=== PATIENT | female | born 2000 | race Caucasian/White ===

== ENCOUNTER 2024-11-18 05:43 | Inpatient (IN) ==
[2024-11-18] MEDS: ONDANSETRON INJ 2 MG/ML 2 ML VIAL IV STA ×2 (06:14→06:57)
[2024-11-18] MEDS: KETOROLAC TROMETHAMINE 15 MG/ML VIAL IV STA (06:14)
[2024-11-18] MEDS: SODIUM CHLORIDE 0.9% 1,000 ML IV ONE ×2 (06:16→09:40)
[2024-11-18 06:37] LABS: Hematocrit (blood only) 40.9 % (37.0-47.0); Hemoglobin 14.5 g/dl (12.0-16.0); Immature Granulocytes # (auto) 0.02 K/uL (0.01-0.20); Immature Granulocytes % (auto) 0.2 %; Mean Corpuscular Hemoglobin 31.9 pg (25.0-34.0); Mean Corpuscular Volume 90.1 fL (80.0-100.0); Platelet Count 269 K/uL (130-400); RDW Standard Deviation 38.0 fL (36.4-46.3); Red Blood Count 4.54 M/uL (4.20-5.40); White Blood Count 9.11 K/ul (4.8-10.8)
[2024-11-18 06:56] LABS: Alanine Aminotransferase 15.0 U/L (7-52); Albumin Globulin Ratio 1.1 (0.9-2); Alkaline Phosphatase 39.0 U/L (34-104); Anion Gap 7.0 (3-11); Bilirubin,Total 0.3 mg/dl (0.2-1.0); Blood Urea Nitrogen 12.0 mg/dl (6-23); Calcium 8.6 mg/dl (8.6-10.3); Carbon Dioxide 22.0 mmol/L (21-32); Chloride 111.0 mmol/L (98-107); Creatinine Clr Calc Pharmacy 142.5 ml/min; Globulin 3.6 gm/dl (2.5-4.0); Glucose 99.0 mg/dl (70-99(Fasting)); Lipase 22.0 U/L (11-82); Potassium 3.7 mmol/L (3.5-5.1); Sodium 140.0 mmol/L (136-145); Total Protein 7.6 gm/dl (6.0-8.3)
[2024-11-18] MEDS: MoRPHine SULFATE 4 MG/ML 1 ML CARP\\VIAL IV STA (06:57)
[2024-11-18] MEDS: ACETAMINOPHEN 1,000 MG/100 ML VIAL IV STA (06:57)
[2024-11-18 07:06] LABS: Pregnancy Test, Serum Negative (Negative)
--- NOTE | 2024-11-18 07:06 | Emergency Department Note ---
Impression & Plan Acute right flank pain, Hydronephrosis, Renal colic, Vomiting, UTI (urinary tract infection) ED Provider Note NAME: MARU STERLING AGE: 24 SEX: F : 2000 ARRIVES VIA: Walk-In INFORMANT: [Patient][father] ED PROVIDER(S): [Daljit Gilman MD] CHIEF COMPLAINT: Kidney stone HISTORY OF PRESENT ILLNESS: The patient is a 24-year-old female who presents to the ER with about 2.5 hours of right flank pain that radiates to the groin. She did urinate initially and the urine seemed dark, now it seems like she cannot urinate. She has had nausea and vomiting. The patient felt fine yesterday. There has been no fever, no cough or congestion. Patient has no history of previous kidney stone. PMHx/PSHx/Social Hx: See Below PHYSICAL EXAM: GENERAL: Patient is in mild distress from pain. HEENT: No acute trauma, normocephalic atraumatic, mucous membranes moist, no nasal congestion. NECK: No stridor, no adenopathy, no meningismus, trachea is midline. LUNGS: Clear to auscultation bilaterally, no wheeze, no rhonchi, breath sounds equal. HEART: Without murmurs gallops or rubs, regular rate and rhythm. ABDOMEN: Soft, nontender, no peritonitis. EXTREMITIES: No cyanosis, full range of motion of all the joints without pain or difficulty. NEUROLOGIC: Oriented x 3, no acute motor or sensory deficits, no focal weakness. SKIN: No jaundice, no diaphoresis. Back: Right flank discomfort to percussion. DIFFERENTIAL DIAGNOSIS: Renal colic, pyelonephritis, UTI, ovarian cyst, ovarian torsion, bowel obstruction, among others. EMERGENCY DEPARTMENT PROCEDURES: MEDICAL DECISION MAKING: There is no leukocytosis or concerning anemia. There is a normal platelet count. No bandemia. No renal failure or significant electrolyte abnormality. No concerning liver enzyme elevation. testing was negative. No evidence for pancreatitis. Urinalysis does show findings consistent with infection. Abdominal and pelvis CT shows right-sided hydronephrosis with a distal right ureteral stone. On exam, patient was quite uncomfortable. She was not febrile. Patient was given IV saline and IV Toradol. She was given IV Zofran. She required additional IV Zofran. She was given IV morphine and eventually IV Dilaudid for pain control. She received IV Tylenol, IV ceftriaxone, IV Benadryl. She was given her typical dose of oral fludrocortisone. She was given oral Flomax. The patient has persistent right flank discomfort. She has required multiple different meds for symptom control. She is going to require a hospital stay. Additionally, she was found to have a UTI. The findings of UTI with a urinary obstruction were bit more concerning. Urology was consulted. The patient is being hospitalized, she will likely have a urologic procedure later today. I did speak with the patient and her father, results/findings were discussed. I spoke with case management, the on-call hospitalist was consulted. Prior/Outside records/notes reviewed: None Imaging/x-ray results per my interpretation: Chronic Medical/Social conditions affecting care: None Care/Management discussed with: Urology-Dr. Godinez. Case management and the on-call hospitalist. Level of care consideration(s): After review of the information above and other included data: --I believe the patient requires escalation of care to admission DISPOSITION: Admission Past Med/Surg History Problem List (Updated 11/18/24 @ 14:57 by Daljit Gilman MD) UTI (urinary tract infection) (Acute) Vomiting (Acute) Renal colic (Acute) Hydronephrosis (Acute) Acute right flank pain (Acute) Right distal ureteral calculus Hydronephrosis Hand pain, left (Acute) Laceration of left hand (Acute) Dyspepsia Nausea & vomiting Encounter for pre-operative examination Syncope and collapse Tachycardia Vitamin D deficiency Shoulder pain, right GERD (gastroesophageal reflux disease) H/O concussion TMJ (temporomandibular joint disorder) Ankylosing spondylitis Rheumatoid factor positive Polyarthralgia Migraine without aura Obesity History of wisdom tooth extraction Migraines (Chronic) Medical History History of tachycardia 03/2024, dx w/ POTS shortly after Hx of syncope 03/2024, w/collapse, dx POTS shortly after per pt. Shoulder pain, right ongoing per pt. Rheumatoid factor positive hx Hx of polyarthritis Hx of migraines Hx of concussion 2022, no residual effects Hx of gastroesophageal reflux (GERD) Hx of ankylosing spondylitis Generalized anxiety disorder Major depressive disorder History of OCD (obsessive compulsive disorder) Hx of temporomandibular joint disorder locks occasionally due to overextertion, "but not for long" POTS (postural orthostatic tachycardia syndrome) dx 03/2024; f/u [facility]ology Surgical History Hx of oral surgery x3 minor surgeries H/O tooth extraction wisdom teeth extracted Family History Grandfather (Maternal) Myocardial infarction Mother Hypertension Stroke Cavernous hemangioma Father Hypertension Bipolar disorder Lung disease Sleep apnea Prediabetes Sister Transgender Depression ADHD Autism Eating disorder Denies family history of Ovarian cancer Prostate cancer Breast cancer Colorectal cancer Social History Smoking Status: Never smoker Tobacco Type: Cigarettes and E-cigarettes / Vaping Second Hand Exposure: No; Do You Dip or Chew Tobacco: No; Hx Alcohol Use: No Hx Substance Use: Yes Non-Prescribed Medications: Marijuana Last Used Substance: Days (ago) Last Used Substance Other:: 10/31/24 Substance Use Type Other:: edibles Preferred Language: Chinese Communication Ability: Effective Visual Impairment: No Limitations Hearing Ability: Normal Health Plan Manager Required: No Beliefs That Will Affect Care: None marital status: Single Current Living Situation: Family current occupational status: unemployed 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 Feels Safe at Home: Yes Childhood Exposure to Second-Hand Smoke: No Diet: regular caffeine: Yes during the past year weight has: remained stable Dental Care, Regularly: Yes Physical Activity Frequency: 3-4 Times per Week Seatbelt Use: always Sunscreen Use: Yes Do you think of yourself as: Queer Sexual Activity: has been sexually active within the last 12 months Gender Identity: Genderqueer Assistive Devices: Glasses and Walker Allergies Allergies Allergy/AdvReac Type Severity Reaction Status Date / Time prochlorperazine AdvReac Unknown panic Verified 11/08/24 11:36 [From Compazine] attack Home Meds Home Medications Medication Instructions Recorded Confirmed compound face Cream 1 applic topical DIRECTED 06/18/22 11/18/24 emtricitabine 200 mg-tenofovir 1 tab PO DAILY 06/18/24 11/18/24 disoproxil fumarate 300 mg tablet mupirocin 2 % topical ointment 1 applic topical BID PRN Mouth 11/02/24 11/18/24 Irritation ondansetron HCl 4 mg tablet 4 mg PO Q6H PRN Nausea And Vomiting 11/02/24 11/18/24 ubrogepant 100 mg tablet (Ubrelvy) 100 mg PO .COMPLEX PRN Migraine 11/18/24 11/18/24 Headache Previous Rx's Medication Instructions Recorded etonogestrel 0.12 mg-ethinyl 1 vag ring vaginal ONCE #3 ea 06/16/22 estradiol 0.015 mg/24 hr vaginal ring (NuvaRing) Shower Chair #1 ea 10/20/22 infliximab 100 mg intravenous 1,034 mg IV ONCE 06/01/23 solution (Remicade) hydroxyzine HCl 25 mg tablet 25 mg PO Q6H PRN Anxiety #360 tabs 12/08/23 sertraline 100 mg tablet 150 mg (1.5 x 100 mg) PO HS 90 03/19/24 days #135 tabs trazodone 100 mg tablet 100 mg PO QPM #90 tabs 08/02/24 famotidine 40 mg tablet 40 mg PO BID 90 days #180 tabs 08/07/24 fremanezumab-vfrm 225 mg/1.5 mL 225 mg (1.5 mL) subcut .COMPLEX 90 08/08/24 subcutaneous auto-injector (Ajovy) days #4.5 mL naproxen 500 mg tablet 500 mg PO DAILY PRN pain 90 days 08/08/24 #90 tabs fludrocortisone 0.1 mg tablet 0.2 mg (2 x 0.1 mg) PO DAILY #60 08/31/24 tabs cholecalciferol (vitamin D3) 1,250 50,000 unit PO .weekly #16 caps 09/10/24 mcg (50,000 unit) capsule Results & Data (ED) Vital Signs Vital Signs - 24 hr 11/18/24 05:43 11/18/24 05:44 11/18/24 06:01 Temperature 36.8 C 36.5 C Temperature Source Oral Temporal Artery Scan Pulse Rate 112 H 91 H Pulse Rate [Right Finger] 89 Pulse Rate from SpO2 Sensor Respiratory Rate 20 18 Respiratory Effort / Characteristics Non-Labored Spontaneous Respiratory Depth Normal Respiratory Pattern Regular Blood Pressure 165/95 H Blood Pressure [Left Arm] 169/130 H Blood Pressure Mean 118 Blood Pressure Mean [Left Arm] 143 Blood Pressure Position Sitting Pulse Oximetry 97 97 Oxygen Delivery Method Room Air Room Air Sepsis Recent Fever Within 48 Hours No Sepsis New/Unexplained Change in Mental Status No Sepsis Action Taken by Nursing No Action Required 11/18/24 06:22 11/18/24 06:22 11/18/24 06:45 Temperature Temperature Source Pulse Rate 88 Pulse Rate [Right Finger] Pulse Rate from SpO2 Sensor 88 Respiratory Rate Respiratory Effort / Characteristics Respiratory Depth Respiratory Pattern Blood Pressure 169/130 H 169/130 H Blood Pressure [Left Arm] Blood Pressure Mean 152 152 Blood Pressure Mean [Left Arm] Blood Pressure Position Pulse Oximetry 99 Oxygen Delivery Method Sepsis Recent Fever Within 48 Hours Sepsis New/Unexplained Change in Mental Status Sepsis Action Taken by Nursing 11/18/24 06:51 11/18/24 07:57 11/18/24 07:57 Temperature Temperature Source Pulse Rate 87 74 Pulse Rate [Right Finger] 74 Pulse Rate from SpO2 Sensor 86 74 Respiratory Rate 22 20 14 Respiratory Effort / Characteristics Respiratory Depth Respiratory Pattern Blood Pressure Blood Pressure [Left Arm] 130/96 Blood Pressure Mean Blood Pressure Mean [Left Arm] 107 Blood Pressure Position Pulse Oximetry 98 96 96 Oxygen Delivery Method Room Air Sepsis Recent Fever Within 48 Hours Sepsis New/Unexplained Change in Mental Status Sepsis Action Taken by Nursing 11/18/24 07:59 11/18/24 08:00 11/18/24 08:12 Temperature Temperature Source Pulse Rate 71 80 Pulse Rate [Right Finger] Pulse Rate from SpO2 Sensor 72 80 Respiratory Rate 13 13 Respiratory Effort / Characteristics Respiratory Depth Respiratory Pattern Blood Pressure 158/100 H Blood Pressure [Left Arm] Blood Pressure Mean 122 Blood Pressure Mean [Left Arm] Blood Pressure Position Pulse Oximetry 97 97 Oxygen Delivery Method Sepsis Recent Fever Within 48 Hours Sepsis New/Unexplained Change in Mental Status Sepsis Action Taken by Nursing 11/18/24 08:21 11/18/24 08:24 11/18/24 08:33 Temperature Temperature Source Pulse Rate 79 76 Pulse Rate [Right Finger] Pulse Rate from SpO2 Sensor 80 76 Respiratory Rate 15 Respiratory Effort / Characteristics Respiratory Depth Respiratory Pattern Blood Pressure 157/104 H Blood Pressure [Left Arm] Blood Pressure Mean 122 Blood Pressure Mean [Left Arm] Blood Pressure Position Pulse Oximetry 98 97 Oxygen Delivery Method Sepsis Recent Fever Within 48 Hours Sepsis New/Unexplained Change in Mental Status Sepsis Action Taken by Nursing 11/18/24 08:39 11/18/24 08:57 11/18/24 09:00 Temperature Temperature Source Pulse Rate 87 74 76 Pulse Rate [Right Finger] Pulse Rate from SpO2 Sensor 86 76 78 Respiratory Rate 15 20 21 Respiratory Effort / Characteristics Respiratory Depth Respiratory Pattern Blood Pressure Blood Pressure [Left Arm] Blood Pressure Mean Blood Pressure Mean [Left Arm] Blood Pressure Position Pulse Oximetry 97 97 96 Oxygen Delivery Method Sepsis Recent Fever Within 48 Hours Sepsis New/Unexplained Change in Mental Status Sepsis Action Taken by Nursing 11/18/24 09:01 11/18/24 09:01 11/18/24 09:01 Temperature Temperature Source Pulse Rate Pulse Rate [Right Finger] Pulse Rate from SpO2 Sensor Respiratory Rate Respiratory Effort / Characteristics Respiratory Depth Respiratory Pattern Blood Pressure 156/106 H 156/106 H 156/106 H Blood Pressure [Left Arm] Blood Pressure Mean 116 116 116 Blood Pressure Mean [Left Arm] Blood Pressure Position Pulse Oximetry Oxygen Delivery Method Sepsis Recent Fever Within 48 Hours Sepsis New/Unexplained Change in Mental Status Sepsis Action Taken by Nursing 11/18/24 09:01 11/18/24 09:09 11/18/24 09:12 Temperature Temperature Source Pulse Rate 89 81 Pulse Rate [Right Finger] Pulse Rate from SpO2 Sensor 90 82 Respiratory Rate 23 19 Respiratory Effort / Characteristics Respiratory Depth Respiratory Pattern Blood Pressure 156/106 H Blood Pressure [Left Arm] Blood Pressure Mean 116 Blood Pressure Mean [Left Arm] Blood Pressure Position Pulse Oximetry 99 98 Oxygen Delivery Method Sepsis Recent Fever Within 48 Hours Sepsis New/Unexplained Change in Mental Status Sepsis Action Taken by Nursing 11/18/24 09:21 Temperature Temperature Source Pulse Rate 82 Pulse Rate [Right Finger] Pulse Rate from SpO2 Sensor 82 Respiratory Rate 20 Respiratory Effort / Characteristics Respiratory Depth Respiratory Pattern Blood Pressure Blood Pressure [Left Arm] Blood Pressure Mean Blood Pressure Mean [Left Arm] Blood Pressure Position Pulse Oximetry 98 Oxygen Delivery Method Sepsis Recent Fever Within 48 Hours Sepsis New/Unexplained Change in Mental Status Sepsis Action Taken by Assisted Medications Current Medication List: was personally reviewed by me Laboratory Data Attestation: I reviewed the patient's lab results. 11/18/24 06:12 11/18/24 06:12 Lab Results 11/18/24 11/18/24 Range/Units 06:12 07:45 WBC 9.11 (4.8-10.8) K/ul RBC 4.54 (4.20-5.40) M/uL Hgb 14.5 (12.0-16.0) g/dl Hct 40.9 (37.0-47.0) % MCV 90.1 (80.0-100.0) fL MCH 31.9 (25.0-34.0) pg MCHC 35.5 (32.0-36.0) g/dL RDW Std Deviation 38.0 (36.4-46.3) fL RDW Coeff of Zaira 11.6 (11.5-14.5) % Plt Count 269 (130-400) K/uL MPV 9.8 (9.4-12.4) fL Immature Gran % (Auto) 0.2 % Neut % (Auto) 49.6 % Lymph % (Auto) 39.3 % [place] % (Auto) 7.7 % Eos % (Auto) 2.5 % Baso % (Auto) 0.7 % Neut # (Auto) 4.52 (1.40-6.50) K/uL Lymph # (Auto) 3.58 H (1.20-3.40) K/uL [place] # (Auto) 0.70 H (0.11-0.59) K/uL Eos # (Auto) 0.23 (0.00-0.50) K/uL Baso # (Auto) 0.06 (0.00-0.20) K/uL Immature Gran # (Auto) 0.02 (0.01-0.20) K/uL Sodium 140 (136-145) mmol/L Potassium 3.7 (3.5-5.1) mmol/L Chloride 111 H (98-107) mmol/L Carbon Dioxide 22 (21-32) mmol/L Anion Gap 7 (3-11) BUN 12 (6-23) mg/dl Creatinine 0.96 (0.6-1.2) mg/dl Est Cr Clr Drug Dosing 142.5 ml/min eGFR 84.73 BUN/Creatinine Ratio 12.5 (10-20) Glucose 99 (70-99(Fasting)) mg/dl Calcium 8.6 (8.6-10.3) mg/dl Total Bilirubin 0.3 (0.2-1.0) mg/dl AST 16 (13-39) U/L ALT 15 (7-52) U/L Alkaline Phosphatase 39 (34-104) U/L Total Protein 7.6 (6.0-8.3) gm/dl Albumin 4.0 (3.4-5.0) gm/dl Globulin 3.6 (2.5-4.0) gm/dl Albumin/Globulin Ratio 1.1 (0.9-2) Lipase 22 (11-82) U/L HCG, Qual Negative (Negative) Urine Color Dark Yellow Urine Appearance Turbid A (Clear) Urine pH 6.0 (4.5-7.5) Ur Specific [place] 1.043 H (1.000-1.030) Urine Protein 1+ H (Negative) Urine Glucose (UA) Negative (Negative) Urine Ketones Trace H (Negative) Urine Blood 2+ H (Negative) Urine Nitrite Negative (Negative) Urine Bilirubin Negative (Negative) Urine Urobilinogen Negative (Negative) Ur Leukocyte Esterase 2+ H (Negative) Urine WBC (Auto) >50 H (0-5) /hpf Urine RBC (Auto) 6-10 H (0-2) /hpf U Hyaline Cast (Auto) 3-5 H (0-2) /lpf U Epithel Cells (Auto) >20 H (0-2) /hpf Urine Bacteria (Auto) 4+ H (None Seen) Calcium Oxalate Crystal Present A (None Prsent) Urine Comment Administered Medications Morphine Sulfate (Morphine Sulfate 2 Mg/Ml Carp) 2 mg IV Q2H PRN PRN Reason: Severe Pain (7,8,9,10) on NRS Stop: 12/02/24 11:43 Last Admin: 11/18/24 12:28 Dose: 2 mg Documented By: CSE Discontinued Medications Diphenhydramine HCl (Diphenhydramine 50 Mg/Ml Vial) 12.5 mg IV NOW STA Stop: 11/18/24 08:23 Last Admin: 11/18/24 08:30 Dose: 12.5 mg Documented By: ML Fludrocortisone Acetate (Fludrocortisone Acetate 0.1 Mg Tab) 0.2 mg PO NOW STA Stop: 11/18/24 08:38 Last Admin: 11/18/24 09:12 Dose: 0.2 mg Documented By: ML Hydromorphone HCl (Hydromorphone Inj 0.5 Mg/0.5 Ml Syr) 0.5 mg IV NOW STA Stop: 11/18/24 08:22 Last Admin: 11/18/24 08:30 Dose: 0.5 mg Documented By: ML Hydromorphone HCl (Hydromorphone Inj 0.5 Mg/0.5 Ml Syr) 0.5 mg IV Q15M PRN PRN Reason: Pain Stop: 12/02/24 08:55 Last Admin: 11/18/24 10:39 Dose: 0.5 mg Documented By: AMS Sodium Chloride (Nss) 1,000 mls @ 999 mls/hr IV .Q1H1M ONE Stop: 11/18/24 06:48 Last Infusion: 11/18/24 07:47 Dose: Infused Documented By: Admin: 11/18/24 06:16 Dose: 999 mls/hr Documented By: BEN Acetaminophen (Ofirmev) 1,000 mg in 100 mls @ 400 mls/hr IV NOW STA Stop: 11/18/24 07:00 Last Infusion: 11/18/24 07:47 Dose: Infused Documented By: Admin: 11/18/24 06:57 Dose: 400 mls/hr Documented By: ML Promethazine HCl (Phenergan) 12.5 mg in 50.5 mls @ 202 mls/hr IV NOW STA Stop: 11/18/24 08:35 Last Infusion: 11/18/24 09:10 Dose: Infused Documented By: Admin: 11/18/24 08:30 Dose: 202 mls/hr Documented By: ML Ceftriaxone Sodium (Rocephin) 2,000 mg in 50 mls @ 100 mls/hr IV NOW STA Stop: 11/18/24 09:17 Last Infusion: 11/18/24 09:42 Dose: Infused Documented By: Admin: 11/18/24 09:12 Dose: 100 mls/hr Documented By: ML Sodium Chloride (Nss) 1,000 mls @ 999 mls/hr IV .Q1H1M ONE Stop: 11/18/24 10:20 Last Infusion: 11/18/24 11:29 Dose: Infused Documented By: Admin: 11/18/24 09:40 Dose: 999 mls/hr Documented By: ML Famotidine (Pepcid 20mg Iv Push) 20 mg in 5 mls @ 2.5 mls/min IV NOW STA Stop: 11/18/24 09:21 Last Admin: 11/18/24 09:36 Dose: 2.5 mls/min Documented By: JEANETTE Ketorolac Tromethamine (Ketorolac Tromethamine 15 Mg/Ml Vial) 15 mg IV NOW STA Stop: 11/18/24 05:49 Last Admin: 11/18/24 06:14 Dose: 15 mg Documented By: BEN Morphine Sulfate (Morphine Sulfate 4 Mg/Ml 1 Ml Carp\\Vial) 4 mg IV NOW STA Stop: 11/18/24 06:47 Last Admin: 11/18/24 06:57 Dose: 4 mg Documented By: JEANETTE Morphine Sulfate (Morphine Sulfate 4 Mg/Ml 1 Ml Carp\\Vial) 4 mg IV Q15M PRN PRN Reason: Pain Stop: 12/02/24 06:45 Last Admin: 11/18/24 07:48 Dose: 4 mg Documented By: JEANETTE Ondansetron HCl (Ondansetron Inj 2 Mg/Ml 2 Ml Vial) 4 mg IV NOW STA Stop: 11/18/24 05:49 Last Admin: 11/18/24 06:14 Dose: 4 mg Documented By: BEN Ondansetron HCl (Ondansetron Inj 2 Mg/Ml 2 Ml Vial) 4 mg IV NOW STA Stop: 11/18/24 06:47 Last Admin: 11/18/24 06:57 Dose: 4 mg Documented By: JEANETTE Tamsulosin HCl (Tamsulosin Hcl 0.4 Mg Cap) 0.4 mg PO NOW ONE Stop: 11/18/24 08:17 Last Admin: 11/18/24 09:12 Dose: 0.4 mg Documented By: JEANETTE Imaging Data Radiologist's Impression: Retrograde Pyelogram 11/18/24 00:00 INTRAOPERATIVE FLUOROSCOPIC IMAGES: CLINICAL HISTORY: Right retrograde exam. COMPARISON: CT of the abdomen and pelvis November 18, 2024 at 6:31 AM. Fluoroscopy time: 14 seconds. Number of fluoroscopic images: 1 Ka,r: 8.98 mGy: FINDINGS: Fluoroscopy was provided during right retrograde exam with right ureteral stent insertion. Proximal aspect of the stent projects over the right collecting system. IMPRESSION: Fluoroscopy provided during right retrograde exam with right ureteral stent insertion. Electronically signed by: Asa Shelby M.D. 11/18/2024 2:27 PM Abdomen/Pelvis CT 11/18/24 05:48 EXAM: CT abd pelvis wo con CLINICAL HISTORY: right flank pain TECHNIQUE: Contiguous axial images were obtained from the level of the diaphragm to the pubic symphysis without intravenous or oral contrast. Coronal and sagittal reconstructions were likewise performed and indicated to increase the sensitivity for detecting clinically relevant pathology. CT scan was performed according to ALARA (as low as reasonable achievable). COMPARISON: None. FINDINGS: The visualized lung bases are clear. Evaluation of the abdominal and pelvic visceral organs is limited without intravenous contrast. The unenhanced liver, spleen, pancreas, and adrenal glands are grossly unremarkable. The gallbladder is present. The kidneys are normal in size and attenuation without obvious calcification. Right kidney shows hydronephrosis and hydroureter up to an obstructing calculus of size 2mm is noted in right vesicoureteric junction. No adenopathy or fluid collections are seen. No evidence of focal or diffuse bowel wall thickening or evidence of bowel obstruction is seen. The appendix is visualized in the right lower quadrant and appears within normal limits. The aorta is normal in caliber. The urinary bladder is normal in contour. Pelvic viscera are grossly unremarkable. No aggressive appearing osseous lesions are identified. IMPRESSION: Right kidney shows hydronephrosis and hydroureter up to an obstructing calculus of size 2mm is noted in right vesicoureteric junction. Electronically signed by Silas Manjarrez 11-18-2024 07:49 AM Discharge Plan Visit Data Chief Complaint: Kidney Stone Stated Complaint: KIDNEY STONE ED Provider: Daljit Gilman Discharge Problem: Acute right flank pain, Hydronephrosis, Renal colic, Vomiting, UTI (urinary tract infection) Patient Disposition: Admitted As Inpatient Condition: Fair Discharge Instructions Interventions: ED Discharge Assessment Last Done: 11/18/24 11:27 Discharge Problem: Hydronephrosis Qualifiers: Hydronephrosis type: with renal calculous obstruction Qualified Code(s): N13.2 - Hydronephrosis with renal and ureteral calculous obstruction Vomiting Qualifiers: Vomiting type: unspecified Nausea presence: with nausea Qualified Code(s): R 11.2 - Nausea with vomiting, unspecified UTI (urinary tract infection) Qualifiers: Urinary tract infection type: acute cystitis Hematuria presence: without hematuria Qualified Code(s): N30.00 - Acute cystitis without hematuria
[2024-11-18] MEDS: MoRPHine SULFATE 4 MG/ML 1 ML CARP\\VIAL IV PRN (07:48)
--- NOTE | 2024-11-18 07:50 | CT Scan Report ---
EXAM: CT abd pelvis wo con CLINICAL HISTORY: right flank pain TECHNIQUE: Contiguous axial images were obtained from the level of the diaphragm to the pubic symphysis without intravenous or oral contrast. Coronal and sagittal reconstructions were likewise performed and indicated to increase the sensitivity for detecting clinically relevant pathology. CT scan was performed according to ALARA (as low as reasonable achievable). COMPARISON: None. FINDINGS: The visualized lung bases are clear. Evaluation of the abdominal and pelvic visceral organs is limited without intravenous contrast. The unenhanced liver, spleen, pancreas, and adrenal glands are grossly unremarkable. The gallbladder is present. The kidneys are normal in size and attenuation without obvious calcification. Right kidney shows hydronephrosis and hydroureter up to an obstructing calculus of size 2mm is noted in right vesicoureteric junction. No adenopathy or fluid collections are seen. No evidence of focal or diffuse bowel wall thickening or evidence of bowel obstruction is seen. The appendix is visualized in the right lower quadrant and appears within normal limits. The aorta is normal in caliber. The urinary bladder is normal in contour. Pelvic viscera are grossly unremarkable. No aggressive appearing osseous lesions are identified. IMPRESSION: Right kidney shows hydronephrosis and hydroureter up to an obstructing calculus of size 2mm is noted in right vesicoureteric junction. Electronically signed by Silas Manjarrez 11-18-2024 07:49 AM
[2024-11-18] MEDS: HYDROmorphone INJ 0.5 MG/0.5 ML SYR IV STA (08:30)
[2024-11-18] MEDS: PROMETHAZINE 12.5 MG/50.5 ML BAG IV STA (08:30)
[2024-11-18] MEDS: diphenhydrAMINE 50 MG/ML VIAL IV STA (08:30)
[2024-11-18 08:45] LABS: Appearance Urine Turbid (Clear); Bacteria Urine Automated 4+ (None Seen); Epithelial Cell Urine Auto >20 /hpf (0-2); Glucose Urine UA Negative (Negative); WBC Urine Automated >50 /hpf (0-5)
[2024-11-18] MEDS: TAMSULOSIN HCL 0.4 MG CAP PO ONE (09:12)
[2024-11-18] MEDS: FLUDROCORTISONE ACETATE 0.1 MG TAB PO STA (09:12)
[2024-11-18] MEDS: cefTRIAXone SODIUM 2,000 MG/50 ML BAG IV STA (09:12)
--- NOTE | 2024-11-18 09:24 | History & Physical Report ---
Date of Service November 18, 2024 Assessment & Plan (1) Hydronephrosis: (2) Hx of gastroesophageal reflux (GERD): (3) POTS (postural orthostatic tachycardia syndrome): (4) Generalized anxiety disorder: (5) Major depressive disorder: Plan Tonia is a 24-year-old female with a past medical history of migraines, ankylosing spondylitis, POTS, GERD who presents to the ER with approximately 4 to 6 hours of right flank pain and inability to urinate. initial evaluation with UA concerning for infection, CT A/P with right-sided hydronephrosis and hydroureter to an obstructing calculus of 2 mm in the right vesicoureteric junction. Admitted for urology consultation and symptom control #Right hydronephrosis Urology consultedplan for stent placement today, 11/18 Continue Flomax daily Minimal ability to urinate since this morning, additional 1 L IV fluid added Continue ceftriaxone for concerns of infection - immunocompromise on Remicade Nausea: IV Zofran as needed Pain control: Tylenol as needed, oxycodone as needed and morphine IV as needed Strain all urine #GERD Continue famotidine 40 mg twice daily #POTS Continue Florinef 0.2 mg daily #Mental health continue sertraline 150 mg nightly, hydroxyzine 25 mg as needed anxiety Trazodone 100 mg HS dispo: Admit to med/surge DVT prophylaxis: Low risk, encourage ambulation Family updated at bedside 11/18 on admission History of Present Illness Chief Complaint: Kidney stone Primary Care Provider: Tracy Jeffries MD Tonia is a 24-year-old female with a past medical history of migraines, ankylosing spondylitis, POTS, GERD who presents to the ER with approximately 4 to 6 hours of right flank pain and inability to urinate. Denies history of kidney stones. Has chronic nausea and vomiting that reports is a little bit worse. States that Zofran usually works best for her. Denies history of kidney stones, reports infrequent UTIs. Denies any frequency urgency burning or in the last few days. Denies fevers or chills at home. We discussed urology consult and likely surgical intervention today and she seemed agreeable to this. She wishes to be a full code ED course: NSS 1 L x 1 Toradol 15 mg IV x 1 Zofran 4 mg IV x 2 Tylenol 1 g IV x 1 Morphine 4 mg IV x 2 Flomax p.o. x 1 Phenergan 12.5 mg IV x 1 Dilaudid 0.5 mg IV x 1 Benadryl 12.5 mg IV x 1 Florinef p.o. x 1 Rocephin Allergies Allergy/AdvReac Type Severity Reaction Status Date / Time prochlorperazine AdvReac Unknown panic Verified 11/08/24 11:36 [From Compazine] attack Home Medications Medication Instructions Recorded Confirmed Type etonogestrel 0.12 mg-ethinyl 1 vag ring vaginal ONCE #3 ea 06/16/22 11/18/24 Rx estradiol 0.015 mg/24 hr vaginal ring (NuvaRing) compound face Cream 1 applic topical DIRECTED 06/18/22 11/18/24 History Shower Chair #1 ea 10/20/22 11/08/24 Rx infliximab 100 mg intravenous 1,034 mg IV ONCE 06/01/23 11/18/24 Rx solution (Remicade) hydroxyzine HCl 25 mg tablet 25 mg PO Q6H PRN Anxiety #360 tabs 12/08/23 11/18/24 Rx sertraline 100 mg tablet 150 mg (1.5 x 100 mg) PO HS 90 03/19/24 11/18/24 Rx days #135 tabs emtricitabine 200 mg-tenofovir 1 tab PO DAILY 06/18/24 11/18/24 History disoproxil fumarate 300 mg tablet trazodone 100 mg tablet 100 mg PO QPM #90 tabs 08/02/24 11/18/24 Rx famotidine 40 mg tablet 40 mg PO BID 90 days #180 tabs 08/07/24 11/18/24 Rx fremanezumab-vfrm 225 mg/1.5 mL 225 mg (1.5 mL) subcut .COMPLEX 90 08/08/24 11/18/24 Rx subcutaneous auto-injector (Ajovy) days #4.5 mL naproxen 500 mg tablet 500 mg PO DAILY PRN pain 90 days 08/08/24 11/18/24 Rx #90 tabs fludrocortisone 0.1 mg tablet 0.2 mg (2 x 0.1 mg) PO DAILY #60 08/31/24 11/18/24 Rx tabs cholecalciferol (vitamin D3) 1,250 50,000 unit PO .weekly #16 caps 09/10/24 11/18/24 Rx mcg (50,000 unit) capsule mupirocin 2 % topical ointment 1 applic topical BID PRN Mouth 11/02/24 11/18/24 History Irritation ondansetron HCl 4 mg tablet 4 mg PO Q6H PRN Nausea And Vomiting 11/02/24 11/18/24 History ubrogepant 100 mg tablet (Ubrelvy) 100 mg PO .COMPLEX PRN Migraine 11/18/24 11/18/24 History Headache Past Med/Surg History Problem List (Updated 11/18/24 @ 10:28 by Fredis Godinez MD) Right distal ureteral calculus Hydronephrosis Hand pain, left (Acute) Laceration of left hand (Acute) Dyspepsia Nausea & vomiting Encounter for pre-operative examination Syncope and collapse Tachycardia Vitamin D deficiency Shoulder pain, right GERD (gastroesophageal reflux disease) H/O concussion TMJ (temporomandibular joint disorder) Ankylosing spondylitis Rheumatoid factor positive Polyarthralgia Migraine without aura Obesity History of wisdom tooth extraction Migraines (Chronic) Medical History History of tachycardia 03/2024, dx w/ POTS shortly after Hx of syncope 03/2024, w/collapse, dx POTS shortly after per pt. Shoulder pain, right ongoing per pt. Rheumatoid factor positive hx Hx of polyarthritis Hx of migraines Hx of concussion 2022, no residual effects Hx of gastroesophageal reflux (GERD) Hx of ankylosing spondylitis Generalized anxiety disorder Major depressive disorder History of OCD (obsessive compulsive disorder) Hx of temporomandibular joint disorder locks occasionally due to overextertion, "but not for long" POTS (postural orthostatic tachycardia syndrome) dx 03/2024; f/u [facility] cardiology Surgical History Hx of oral surgery x3 minor surgeries H/O tooth extraction wisdom teeth extracted Family History Grandfather (Maternal) Myocardial infarction Mother Hypertension Stroke Cavernous hemangioma Father Hypertension Bipolar disorder Lung disease Sleep apnea Prediabetes Sister Transgender Depression ADHD Autism Eating disorder Denies family history of Ovarian cancer Prostate cancer Breast cancer Colorectal cancer Social History Smoking Status: Former smoker Tobacco Type: Cigarettes and E-cigarettes / Vaping Second Hand Exposure: No; Do You Dip or Chew Tobacco: No; Hx Alcohol Use: Yes Alcohol type: beer, wine and hard liquor Alcohol Intake Frequency: Monthly or Less Hx Substance Use: Yes Non-Prescribed Medications: Marijuana Last Used Substance: Days (ago) Last Used Substance Other:: 10/31/24 Substance Use Type Other:: edibles Preferred Language: Haitian Communication Ability: Effective Visual Impairment: No Limitations Hearing Ability: Normal Corduroy Cutter Operator Required: No Beliefs That Will Affect Care: None marital status: Single Current Living Situation: Parent and Family current occupational status: unemployed 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 Feels Safe at Home: Yes Childhood Exposure to Second-Hand Smoke: No Diet: regular caffeine: Yes during the past year weight has: remained stable Dental Care, Regularly: Yes Physical Activity Frequency: 3-4 Times per Week Seatbelt Use: always Sunscreen Use: Yes Do you think of yourself as: Queer Sexual Activity: has been sexually active within the last 12 months Gender Identity: Genderqueer Assistive Devices: Glasses and Walker Review of Systems Review of Systems: All systems reviewed & are unremarkable except as noted in Subjective Physical Exam Physical Exam: General: NAD, VS as above, lying in bed, appears comfortable Resp: normal respiratory effort, lungs clear to auscultation CV: RRR, no murmur, Abd: normal bowel sounds, mild right sided tenderness Back: right CVA tenderness Extremities: Moves all extremities, no edema Neuro: A&O x3, Skin: sutures to left hand intact, no signs of infection Results & Data Results & Data Vital Signs (Past 12 Hours) Vital Signs Temp Pulse Pulse Resp BP BP Pulse Ox 11/18/24 09:01 156/106 H 11/18/24 09:01 156/106 H 11/18/24 09:01 156/106 H 11/18/24 09:01 156/106 H 11/18/24 09:00 76 21 96 11/18/24 08:57 74 20 97 11/18/24 08:39 87 15 97 11/18/24 08:33 157/104 H 11/18/24 08:24 76 97 11/18/24 08:21 79 15 98 11/18/24 08:12 80 13 97 11/18/24 08:00 71 13 97 11/18/24 07:59 158/100 H 11/18/24 07:57 74 14 96 11/18/24 07:57 74 20 130/96 96 11/18/24 06:51 87 22 98 11/18/24 06:45 88 99 11/18/24 06:22 169/130 H 11/18/24 06:22 169/130 H 11/18/24 06:01 91 H 11/18/24 05:44 97.7 F 112 H 18 165/95 H 97 11/18/24 05:43 98.2 F 89 20 169/130 H 97 O2 Del Method 11/18/24 09:01 11/18/24 09:01 11/18/24 09:01 11/18/24 09:01 11/18/24 09:00 11/18/24 08:57 11/18/24 08:39 11/18/24 08:33 11/18/24 08:24 11/18/24 08:21 11/18/24 08:12 11/18/24 08:00 11/18/24 07:59 11/18/24 07:57 11/18/24 07:57 Room Air 11/18/24 06:51 11/18/24 06:45 11/18/24 06:22 11/18/24 06:22 11/18/24 06:01 11/18/24 05:44 Room Air 11/18/24 05:43 Room Air Laboratory Results CBC, chemistry, UA reviewed Diagnostic Findings CT abdomen and pelvis reviewed Supervising Physician Co-Signing Physician Notes Patient was seen and examined independently I discussed the case with Brionna Hess PA-C I reviewed pertinent past medical social family history and also the plan of care and agree with the plan of care. 24-year-old female with a history of migraine calculus spondylitis POTS GERD who presents to the ED with 4 to 6 hours of right flank pain and inability urinate. Patient required increasing doses of parenteral pain medication to improve her symptoms. Urinalysis is abnormal with concern for infection and CT scan showed right-sided hydronephrosis with hydroureter and a UVJ calculus of 2 mm Upon seeing the patient she had been medicated and feels much improved she has no history of kidney stone Examination is for minor discomfort on the right side of her abdomen Assessments: 24-year-old with renal colic with possible additional infection. Plan will be to treat medically to see if we can have her pass her stone if not involve urology Any exceptions will be noted below PG Care Time/CCT Total # of Minutes Spent Total Time Spent with Patient: Total time spent is greater than 50% in coordination of care (as documented) at patient's floor/unit and/or counseling patient: Coding Level of Care Code 67510 INT INP/OBS CARE 3/75MIN Diagnoses Hydronephrosis N13.30 Hx of gastroesophageal reflux (GERD) Z87.19 POTS (postural orthostatic tachycardia syndrome) G90.A Generalized anxiety disorder F41.1 Major depressive disorder F32.9
[2024-11-18] MEDS: FAMOTIDINE 20MG IV PUSH 20 MG/5 ML SYR IV STA (09:36)
--- NOTE | 2024-11-18 10:29 | Urology Consultation ---
Date of Consultation November 18, 2024 Assessment & Plan (1) Hydronephrosis: (2) Right distal ureteral calculus: Plan 24-year-old female presenting with right flank pain. Denies any nausea or vomiting or fevers. Afebrile with stable vitals. Labs within normal limits however urinalysis was grossly positive. CT scan was independently reviewed which showed mild right hydronephrosis and a suspected 2 mm right UVJ stone. Patient being admitted for pain control. Based on obstructing stone and concern for UTI, recommended cystoscopy with right retrograde pyelogram right ureteral stent placement. Explained that we typically do not remove the stone in the situation as it can worsen infection OR will not be available until this afternoon so recommended patient strain urine as a reasonable chance she may pass stone Consent obtained, patient marked Patient already given antibiotics History of Present Illness History of Present Illness 24-year-old female presenting with right flank pain. Denies any nausea or vomiting or fevers. Afebrile with stable vitals. Labs within normal limits however urinalysis was grossly positive. CT scan was independently reviewed which showed mild right hydronephrosis and a suspected 2 mm right UVJ stone. Patient being admitted for pain control. Allergies Allergy/AdvReac Type Severity Reaction Status Date / Time prochlorperazine AdvReac Unknown panic Verified 11/08/24 11:36 [From Compazine] attack Home Medications Medication Instructions Recorded Confirmed Type etonogestrel 0.12 mg-ethinyl 1 vag ring vaginal ONCE #3 ea 06/16/22 11/18/24 Rx estradiol 0.015 mg/24 hr vaginal ring (NuvaRing) compound face Cream 1 applic topical DIRECTED 06/18/22 11/18/24 History Shower Chair #1 ea 10/20/22 11/08/24 Rx infliximab 100 mg intravenous 1,034 mg IV ONCE 06/01/23 11/18/24 Rx solution (Remicade) hydroxyzine HCl 25 mg tablet 25 mg PO Q6H PRN Anxiety #360 tabs 12/08/23 11/18/24 Rx sertraline 100 mg tablet 150 mg (1.5 x 100 mg) PO HS 90 03/19/24 11/18/24 Rx days #135 tabs emtricitabine 200 mg-tenofovir 1 tab PO DAILY 06/18/24 11/18/24 History disoproxil fumarate 300 mg tablet trazodone 100 mg tablet 100 mg PO QPM #90 tabs 08/02/24 11/18/24 Rx famotidine 40 mg tablet 40 mg PO BID 90 days #180 tabs 08/07/24 11/18/24 Rx fremanezumab-vfrm 225 mg/1.5 mL 225 mg (1.5 mL) subcut .COMPLEX 90 08/08/24 11/18/24 Rx subcutaneous auto-injector (Ajovy) days #4.5 mL naproxen 500 mg tablet 500 mg PO DAILY PRN pain 90 days 08/08/24 11/18/24 Rx #90 tabs fludrocortisone 0.1 mg tablet 0.2 mg (2 x 0.1 mg) PO DAILY #60 08/31/24 11/18/24 Rx tabs cholecalciferol (vitamin D3) 1,250 50,000 unit PO .weekly #16 caps 09/10/24 11/18/24 Rx mcg (50,000 unit) capsule mupirocin 2 % topical ointment 1 applic topical BID PRN Mouth 11/02/24 11/18/24 History Irritation ondansetron HCl 4 mg tablet 4 mg PO Q6H PRN Nausea And Vomiting 11/02/24 11/18/24 History ubrogepant 100 mg tablet (Ubrelvy) 100 mg PO .COMPLEX PRN Migraine 11/18/24 11/18/24 History Headache Patient History Medical History History of tachycardia 03/2024, dx w/ POTS shortly after Hx of syncope 03/2024, w/collapse, dx POTS shortly after per pt. Shoulder pain, right ongoing per pt. Rheumatoid factor positive hx Hx of polyarthritis Hx of migraines Hx of concussion 2022, no residual effects Hx of gastroesophageal reflux (GERD) Hx of ankylosing spondylitis Generalized anxiety disorder Major depressive disorder History of OCD (obsessive compulsive disorder) Hx of temporomandibular joint disorder locks occasionally due to overextertion, "but not for long" POTS (postural orthostatic tachycardia syndrome) dx 03/2024; f/u [facility] cardiology Surgical History Hx of oral surgery x3 minor surgeries H/O tooth extraction wisdom teeth extracted Family History Grandfather (Maternal) Myocardial infarction Mother Hypertension Stroke Cavernous hemangioma Father Hypertension Bipolar disorder Lung disease Sleep apnea Prediabetes Sister Transgender Depression ADHD Autism Eating disorder Denies family history of Ovarian cancer Prostate cancer Breast cancer Colorectal cancer Social History Smoking Status: Former smoker Tobacco Type: Cigarettes and E-cigarettes / Vaping Second Hand Exposure: No; Do You Dip or Chew Tobacco: No; Hx Alcohol Use: Yes Alcohol type: beer, wine and hard liquor Alcohol Intake Frequency: Monthly or Less Hx Substance Use: Yes Non-Prescribed Medications: Marijuana Last Used Substance: Days (ago) Last Used Substance Other:: 10/31/24 Substance Use Type Other:: edibles Preferred Language: Uzbek Communication Ability: Effective Visual Impairment: No Limitations Hearing Ability: Normal Corral Boss Required: No Beliefs That Will Affect Care: None marital status: Single Current Living Situation: Parent and Family current occupational status: unemployed 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 Feels Safe at Home: Yes Childhood Exposure to Second-Hand Smoke: No Diet: regular caffeine: Yes during the past year weight has: remained stable Dental Care, Regularly: Yes Physical Activity Frequency: 3-4 Times per Week Seatbelt Use: always Sunscreen Use: Yes Do you think of yourself as: Queer Sexual Activity: has been sexually active within the last 12 months Gender Identity: Genderqueer Assistive Devices: Glasses and Walker Physical Exam Physical Exam: General: Alert and oriented, no acute distress HEENT: Normocephalic, mucous membranes moist Pulmonary: Nonlabored respirations Abdomen: Nondistended Extremities: Moves all 4 spontaneously Neuro: No gross deficits Skin: Warm, dry, no rashes noted Results & Data Vital Signs (Past 12 Hours) Vital Signs Temp Pulse Pulse Resp BP BP Pulse Ox 11/18/24 10:15 145/98 H 11/18/24 10:08 82 11/18/24 10:06 90 14 97 11/18/24 09:48 79 17 96 11/18/24 09:42 75 19 96 11/18/24 09:21 82 20 98 11/18/24 09:12 81 19 98 11/18/24 09:09 89 23 99 11/18/24 09:01 156/106 H 11/18/24 09:01 156/106 H 11/18/24 09:01 156/106 H 11/18/24 09:01 156/106 H 11/18/24 09:00 76 21 96 11/18/24 08:57 74 20 97 11/18/24 08:39 87 15 97 11/18/24 08:33 157/104 H 11/18/24 08:24 76 97 11/18/24 08:21 79 15 98 11/18/24 08:12 80 13 97 11/18/24 08:00 71 13 97 11/18/24 07:59 158/100 H 11/18/24 07:57 74 14 96 11/18/24 07:57 74 20 130/96 96 11/18/24 06:51 87 22 98 11/18/24 06:45 88 99 11/18/24 06:22 169/130 H 11/18/24 06:22 169/130 H 11/18/24 06:01 91 H 11/18/24 05:44 36.5 C 112 H 18 165/95 H 97 11/18/24 05:43 36.8 C 89 20 169/130 H 97 O2 Del Method 11/18/24 10:15 11/18/24 10:08 11/18/24 10:06 11/18/24 09:48 11/18/24 09:42 11/18/24 09:21 11/18/24 09:12 11/18/24 09:09 11/18/24 09:01 11/18/24 09:01 11/18/24 09:01 11/18/24 09:01 11/18/24 09:00 11/18/24 08:57 11/18/24 08:39 11/18/24 08:33 11/18/24 08:24 11/18/24 08:21 11/18/24 08:12 11/18/24 08:00 11/18/24 07:59 11/18/24 07:57 11/18/24 07:57 Room Air 11/18/24 06:51 11/18/24 06:45 11/18/24 06:22 11/18/24 06:22 11/18/24 06:01 11/18/24 05:44 Room Air 11/18/24 05:43 Room Air PG Care Time/CCT Total # of Minutes Spent Total Time Spent with Patient: Total time spent is greater than 50% in coordination of care (as documented) at patient's floor/unit and/or counseling patient: Coding Level of Care Code 54353 IN/OBS CONSULT LVL 3,45M Diagnoses Hydronephrosis N13.30 Right distal ureteral calculus N20.1
[2024-11-18] MEDS: HYDROmorphone INJ 0.5 MG/0.5 ML SYR IV PRN (10:39)
[2024-11-18] MEDS ORDERED: POLYETHYLENE (MIRALAX) 17 GM PACK PO PRN (11:44)
[2024-11-18] MEDS ORDERED: ONDANSETRON INJ 2 MG/ML 2 ML VIAL IV PRN ×2 (11:44→13:18)
[2024-11-18] MEDS ORDERED: ACETAMINOPHEN 500 MG TAB PO PRN (11:44)
[2024-11-18] MEDS: MoRPHine SULFATE 2 MG/ML CARP IV PRN (12:28)
[2024-11-18] MEDS ORDERED: MIDAZOLAM HCL 1 MG/ML 2ML VIAL ONE (13:16)
[2024-11-18] MEDS ORDERED: PROPOFOL IV EMULSION 10 MG/ML 20 ML VIAL IV ONE (13:16)
[2024-11-18] MEDS ORDERED: ONDANSETRON INJ 2 MG/ML 2 ML VIAL ONE (13:16)
[2024-11-18] MEDS ORDERED: LIDOCAINE 2% 2 ML VIAL/AMP(20MG/ML) INFIL ONE (13:17)
[2024-11-18] MEDS ORDERED: HYDROmorphone INJ 1 MG/ML SYRINGE IV PRN (13:18)
[2024-11-18] MEDS ORDERED: ATROPINE SULFATE 0.1 MG/ML 10ML SYR IV PRN (13:18)
--- NOTE | 2024-11-18 13:18 | Anesthesiology Consultation ---
Date of Service November 18, 2024 Assessment & Plan ASA ASA3 Proposed Anesthesia Anesthesia Type: General Risk / Benefits Reviewed With: PT / POA / Parent / Guardian, Accepts Plan and Informed Consent Obtained History Surgery Operation Date: 11/18/24 09:05 Proposed Procedures p Cystoscopy Retrograde(Right) - Fredis Godinez MD s Ureteral Stent Insertion/Removal(Right) - Fredis Godinez MD Height/Weight Height: 5 ft 9 in Weight: 150.4 kg Allergies Allergy/AdvReac Type Severity Reaction Status Date / Time prochlorperazine AdvReac Unknown panic Verified 11/08/24 11:36 [From Compazine] attack Medications Home Medications Medication Instructions Recorded Confirmed Last Taken etonogestrel 0.12 mg-ethinyl 1 vag ring vaginal ONCE #3 ea 06/16/22 11/18/24 11/08/24 estradiol 0.015 mg/24 hr vaginal ring (NuvaRing) compound face Cream 1 applic topical DIRECTED 06/18/22 11/18/24 11/07/24 Shower Chair #1 ea 10/20/22 11/08/24 Unknown infliximab 100 mg intravenous 1,034 mg IV ONCE 06/01/23 11/18/24 10/18/24 solution (Remicade) hydroxyzine HCl 25 mg tablet 25 mg PO Q6H PRN Anxiety #360 tabs 12/08/23 11/18/24 11/07/24 sertraline 100 mg tablet 150 mg (1.5 x 100 mg) PO HS 90 03/19/24 11/18/24 11/07/24 days #135 tabs emtricitabine 200 mg-tenofovir 1 tab PO DAILY 06/18/24 11/18/24 11/08/24 disoproxil fumarate 300 mg tablet trazodone 100 mg tablet 100 mg PO QPM #90 tabs 08/02/24 11/18/24 11/07/24 famotidine 40 mg tablet 40 mg PO BID 90 days #180 tabs 08/07/24 11/18/24 11/08/24 fremanezumab-vfrm 225 mg/1.5 mL 225 mg (1.5 mL) subcut .COMPLEX 90 08/08/24 11/18/24 10/25/24 subcutaneous auto-injector (Ajovy) days #4.5 mL naproxen 500 mg tablet 500 mg PO DAILY PRN pain 90 days 08/08/24 11/18/24 Unknown #90 tabs fludrocortisone 0.1 mg tablet 0.2 mg (2 x 0.1 mg) PO DAILY #60 08/31/24 11/18/24 11/08/24 tabs cholecalciferol (vitamin D3) 1,250 50,000 unit PO .weekly #16 caps 09/10/24 11/18/24 11/07/24 mcg (50,000 unit) capsule mupirocin 2 % topical ointment 1 applic topical BID PRN Mouth 11/02/24 11/18/24 11/07/24 Irritation ondansetron HCl 4 mg tablet 4 mg PO Q6H PRN Nausea And Vomiting 11/02/24 11/18/24 11/07/24 ubrogepant 100 mg tablet (Ubrelvy) 100 mg PO .COMPLEX PRN Migraine 11/18/24 11/18/24 Unknown Headache Active Medications Generic Name Dose Route Start Last Admin Trade Name Supa PRN Reason Stop Dose Admin Morphine Sulfate 2 mg 11/18/24 11:44 11/18/24 12:28 Morphine Sulfate 2 Mg/Ml Carp IV 12/02/24 11:43 2 mg Q2H PRN Administration Severe Pain (7,8,9,10) on NRS NPO Date Last Intake of Fluids: 11/18/24 Time Last Intake of Fluids: 00:00 Date Last Intake of Solids: 11/18/24 Time Last Intake of Solids: 00:00 Past Medical History Medical History History of tachycardia 03/2024, dx w/ POTS shortly after Hx of syncope 03/2024, w/collapse, dx POTS shortly after per pt. Shoulder pain, right ongoing per pt. Rheumatoid factor positive hx Hx of polyarthritis Hx of migraines Hx of concussion 2022, no residual effects Hx of gastroesophageal reflux (GERD) Hx of ankylosing spondylitis Generalized anxiety disorder Major depressive disorder History of OCD (obsessive compulsive disorder) Hx of temporomandibular joint disorder locks occasionally due to overextertion, "but not for long" POTS (postural orthostatic tachycardia syndrome) dx 03/2024; f/u [facility] cardiology Exercise / Class Metabolic Activity II 4-5 Yardwork/Stairs/Walk up hill Past Family History Family History Grandfather (Maternal) Myocardial infarction Mother Hypertension Stroke Cavernous hemangioma Father Hypertension Bipolar disorder Lung disease Sleep apnea Prediabetes Sister Transgender Depression ADHD Autism Eating disorder Denies family history of Ovarian cancer Prostate cancer Breast cancer Colorectal cancer Past Surgical History Surgical History Hx of oral surgery x3 minor surgeries H/O tooth extraction wisdom teeth extracted Past Anesthesia History No Hx of Anesthesia Complications and No Family Hx of Anesthesia Complications History of PONV No Hx of PONV and No Hx of Motion Sickness Social History Smoking Status: Never smoker Do You Dip or Chew Tobacco: No Hx Alcohol Use: No Alcohol type: beer, wine and hard liquor alcohol intake frequency: holidays/special occasions only Hx Substance Use: Yes substance use type: marijuana Substance Use Type Other:: edibles Last Used Substance: Days (ago) Last Used Substance Other:: 10/31/24 Review of Systems denies fever/cough/ colds/ chest pain/ SOB/ DEIDRE denies DEIDRE Physical Exam Vital Signs Last Vital Signs Temp 36.7 C 11/18/24 11:49 Pulse 81 11/18/24 11:49 Resp 16 11/18/24 11:49 BP 162/95 H 11/18/24 11:49 Pulse Ox 98 11/18/24 11:49 O2 Del Method Room Air 11/18/24 11:49 ENMT Mouth: no TMJ abnormality and no dentition abnormality Thyromental Distance: > or= 3.5 Finger Breadths Mallampati Class: II Neck neck extension not limited Respiratory normal respiratory effort; no respiratory distress Auscultation: lungs clear to auscultation bilaterally Cardiovascular Rate/Rhythm: regular rate and regular rhythm Neurologic moves all extremities Psychiatric Orientation: alert and oriented x 3 Testing Laboratory Results 11/18/24 06:12 11/18/24 06:12 Urine Color Dark Yellow 11/18/24 07:45 Urine Appearance Turbid (Clear) A 11/18/24 07:45 Urine pH 6.0 (4.5-7.5) 11/18/24 07:45 Ur Specific [place] 1.043 (1.000-1.030) H 11/18/24 07:45 Urine Protein 1+ (Negative) H 11/18/24 07:45 Urine Glucose (UA) Negative (Negative) 11/18/24 07:45 Urine Ketones Trace (Negative) H 11/18/24 07:45 Urine Nitrite Negative (Negative) 11/18/24 07:45 Ur Leukocyte Esterase 2+ (Negative) H 11/18/24 07:45 Urine WBC (Auto) >50 /hpf (0-5) H 11/18/24 07:45 Urine RBC (Auto) 6-10 /hpf (0-2) H 11/18/24 07:45 U Hyaline Cast (Auto) 3-5 /lpf (0-2) H 11/18/24 07:45 U Epithel Cells (Auto) >20 /hpf (0-2) H 11/18/24 07:45 Urine Bacteria (Auto) 4+ (None Seen) H 11/18/24 07:45
--- NOTE | 2024-11-18 13:48 | Operative Report ---
PG Post Operative Report Pre & Post Diagnosis Operation Date: 11/18/24 09:05 Pre-Op Diagnosis: Kidney stones Post-Op Diagnosis: Kidney stones I identified the patient and participated in the time-out.: Yes Procedure Operation Date: 11/18/24 09:05 Actual Procedures p Cystoscopy Retrograde Pyelogram with radiographic interpretation, right ureteral stent insertion (Right) - Fredis Godinez MD Surgeon Fredis Godinez MD Stone Rigger None Estimated Blood Loss 0 Findings See Below Mild right hydronephrosis, narrow renal pelvis cystoscopy stent coiled in lower pole Specimens None Drains 6 Singaporean by 26 cm right ureteral stent Anesthesia Type General Complications none Indications 24-year-old female with a 2 mm right UVJ stone and urinalysis concerning for infection Description of Procedure After informed consent was obtained, the patient was transported operative suite. General anesthesia was induced. The patient was placed in dorsolithotomy position prepped and draped in a sterile fashion. They received preoperative ceftriaxone for antibiotic prophylaxis. An appropriate surgical timeout was performed. A 22 Singaporean rigid scope was inserted per urethra into the bladder. Venegas cystoscopy revealed no stones or lesions. I turned my attention the right ureteral orifice and intubated this with a 5 Singaporean open-ended catheter. A right retrograde pyelogram was shot which showed mild hydronephrosis. A sensor wire was advanced into the kidney and confirmed fluoroscopically. A 6 Singaporean by 26 cm right ureteral stent was deployed with a a coil in the lower pole as she had a very narrow renal pelvis and I could not get a good coil there and a good distal coil noted in the bladder, confirmed fluoroscopically and under direct visualization, respectively. The bladder was emptied and the scope was removed. This concluded the end of the case. All counts were correct at the end of the case. I was present, scrubbed, and actively participated for the entirety of the procedure. I attest to the content of the Intraoperative Record and any orders documented therein. Any exceptions are noted below.
[2024-11-18] MEDS ORDERED: DEXAMETHASONE SOD INJ 4 MG/ML VIAL ONE (13:52)
[2024-11-18 14:26] VITALS: RESP 16
--- NOTE | 2024-11-18 14:29 | Fluoroscopy Report ---
INTRAOPERATIVE FLUOROSCOPIC IMAGES: CLINICAL HISTORY: Right retrograde exam. COMPARISON: CT of the abdomen and pelvis November 18, 2024 at 6:31 AM. Fluoroscopy time: 14 seconds. Number of fluoroscopic images: 1 Ka,r: 8.98 mGy: FINDINGS: Fluoroscopy was provided during right retrograde exam with right ureteral stent insertion. Proximal aspect of the stent projects over the right collecting system. IMPRESSION: Fluoroscopy provided during right retrograde exam with right ureteral stent insertion. Electronically signed by: Asa Shelby M.D. 11/18/2024 2:27 PM
--- NOTE | 2024-11-18 14:34 | Anesthesiology Progress Note ---
Date of Service November 18, 2024 Anesthesia Post Procedure Vital Signs Vital Signs: Temp Pulse Pulse Pulse Resp BP BP 11/18/24 14:25 94 H 16 140/100 11/18/24 14:15 88 14 141/96 H 11/18/24 14:05 93 H 14 127/96 11/18/24 13:57 36.1 C L 78 16 133/86 11/18/24 11:49 36.7 C 81 16 162/95 H 11/18/24 11:45 36.7 C 81 16 164/95 H 11/18/24 11:27 11/18/24 11:13 147/96 H 11/18/24 11:13 147/96 H 11/18/24 11:12 82 14 11/18/24 11:09 88 16 11/18/24 10:48 86 18 11/18/24 10:24 78 14 11/18/24 10:15 145/98 H 11/18/24 10:08 82 11/18/24 10:06 90 14 11/18/24 09:48 79 17 11/18/24 09:42 75 19 11/18/24 09:21 82 20 11/18/24 09:12 81 19 11/18/24 09:09 89 23 11/18/24 09:01 156/106 H 11/18/24 09:01 156/106 H 11/18/24 09:01 156/106 H 11/18/24 09:01 156/106 H 11/18/24 09:00 76 21 11/18/24 08:57 74 20 11/18/24 08:39 87 15 11/18/24 08:33 157/104 H 11/18/24 08:24 76 11/18/24 08:21 79 15 11/18/24 08:12 80 13 11/18/24 08:00 71 13 11/18/24 07:59 158/100 H 11/18/24 07:57 74 14 11/18/24 07:57 74 20 130/96 11/18/24 06:51 87 22 11/18/24 06:45 88 11/18/24 06:22 169/130 H 11/18/24 06:22 169/130 H 11/18/24 06:01 91 H 11/18/24 05:44 36.5 C 112 H 18 165/95 H 07/06/25 05:43 36.8 C 89 20 169/130 H Pulse Ox O2 Del Method O2 Flow Rate 11/18/24 14:25 99 Room Air 11/18/24 14:15 98 Oxymask 2 11/18/24 14:05 99 Oxymask 4 11/18/24 13:57 96 Oxymask 4 11/18/24 11:49 98 Room Air 11/18/24 11:45 98 Room Air 11/18/24 11:27 Room Air 11/18/24 11:13 11/18/24 11:13 11/18/24 11:12 98 11/18/24 11:09 98 11/18/24 10:48 98 11/18/24 10:24 95 11/18/24 10:15 11/18/24 10:08 11/18/24 10:06 97 11/18/24 09:48 96 11/18/24 09:42 96 11/18/24 09:21 98 11/18/24 09:12 98 11/18/24 09:09 99 11/18/24 09:01 11/18/24 09:01 11/18/24 09:01 11/18/24 09:01 11/18/24 09:00 96 11/18/24 08:57 97 11/18/24 08:39 97 11/18/24 08:33 11/18/24 08:24 97 11/18/24 08:21 98 11/18/24 08:12 97 11/18/24 08:00 97 11/18/24 07:59 11/18/24 07:57 96 11/18/24 07:57 96 Room Air 11/18/24 06:51 98 11/18/24 06:45 99 11/18/24 06:22 11/18/24 06:22 11/18/24 06:01 11/18/24 05:44 97 Room Air 11/18/24 05:43 97 Room Air Pain Intensity Right Flank: Pain Intensity: 8 Transfer of Care Handoff Completed per policy Notes Mental Status: alert / awake / arousable and participated in evaluation Patient Amnestic to Procedure: Yes Nausea / Vomiting: adequately controlled Pain: adequately controlled Airway Patency, RR, SpO2: stable & adequate BP & HR: stable & adequate Hydration State: stable & adequate Anesthetic Complications: no major complications apparent and Pt Satisfied with anesthetic care
[2024-11-18 15:44] VITALS: TEMP 97.5
[2024-11-18 17:50] VITALS: BP 121/81; PULSE 83; O2SAT 98
--- NOTE | 2024-11-18 18:18 | Discharge Summary ---
Discharge Summary Date of Service November 18, 2024 Principal Dx & Hospital Course #1 = Principal Diagnosis (1) Hydronephrosis: (2) Hx of gastroesophageal reflux (GERD): (3) POTS (postural orthostatic tachycardia syndrome): (4) Generalized anxiety disorder: (5) Major depressive disorder: Plan #Right hydronephrosis Tonia is a 24-year-old female with a past medical history of migraines, ankylosing spondylitis, POTS, GERD who presents to the ER with approximately 4 to 6 hours of right flank pain and inability to urinate. initial evaluation with UA concerning for infection, CT A/P with right-sided hydronephrosis and hydroureter to an obstructing calculus of 2 mm in the right vesicoureteric junction. Admitted for urology consultation and symptom control - underwent stent placement with Dr. Godinez 11/18. Has done well post operatively, urinating without issue and pain is controlled. Plan for continued antibioitics with cipro on discharge and continued flomax. PRN oxybutyin and Pyridium. Tylenol and naproxen for pain control. Follow up with urology for stent removal/stone treatment. #GERD Continue famotidine 40 mg twice daily #POTS Continue Florinef 0.2 mg daily #Mental health continue sertraline 150 mg nightly, hydroxyzine 25 mg as needed anxiety Trazodone 100 mg HS Dispo: discharge to home today Family updated at bedside 11/18 Notes For Next Care Provider Medication Changes From Visit course of cipro flomax while stent in place prn oxybutyin and pyridium Admission HPI Per Admitting Provider Tonia is a 24-year-old female with a past medical history of migraines, ankylosing spondylitis, POTS, GERD who presents to the ER with approximately 4 to 6 hours of right flank pain and inability to urinate. Denies history of kidney stones. Has chronic nausea and vomiting that reports is a little bit worse. States that Zofran usually works best for her. Denies history of kidney stones, reports infrequent UTIs. Denies any frequency urgency burning or in the last few days. Denies fevers or chills at home. We discussed urology consult and likely surgical intervention today and she seemed agreeable to this. She wishes to be a full code ED course: NSS 1 L x 1 Toradol 15 mg IV x 1 Zofran 4 mg IV x 2 Tylenol 1 g IV x 1 Morphine 4 mg IV x 2 Flomax p.o. x 1 Phenergan 12.5 mg IV x 1 Dilaudid 0.5 mg IV x 1 Benadryl 12.5 mg IV x 1 Florinef p.o. x 1 Rocephin Discharge Exam General: NAD, vitals as above, sitting on the side of bed Pulm: breathing unlabored CV: well perfused extremities: moves all extremities Discharge Plan Discharge Items Patient Disposition: Home - Self-Care Reason For Visit: KIDNEY STONE Discharge Diagnosis: Kidney stone Condition on Discharge: Fair Activity: Resume your previous activity Bathing: No limitations Non-emergency contact: Primary Care Provider and Urologist Call non-emergency contact if: you have any medication questions, your symptoms worsen, your pain is not controlled and your temperature is above 101 Follow-up/Referrals: Tracy Jeffries MD [Primary Care Provider] - (follow up within one week ) Fredis Godinez MD [Physician] - (follow up as directed ) Diet: Regular Addtl Attending Provider Instructions: Ms. Hyde, You were hospitalized after having flank pain found to be from kidney stones. You were seen by urology and taken to the OR to have a stent placed on 11/[address] Godinez. Your urine was also concerning for infection so you have been started on antibiotics, these will be continued at discharge. You will need to follow up with urology for stent removal and possible stone treatment. Medication Changes/Recommendations: * Continue flomax daily while stent in place - this is to help with easier passage of urine * Pyridium as needed for pain with urination - this can cause your urine/feces to be discolored/orange * Ciprofloxacin -antibiotic . Please take the entire course, even if you feel well. * Pain control - tylenol and ibuprofen as directed, oxybutynin as needed or spasms It is normal to still have discomfort in the flank area while the stent is in place, this pain may be worse with movement. Blood tinged urine can also be common. If you are having persistent dark bloody urine or thick bloody urine for >8 hours please contact your urologist. It is important that you are staying hydrated while the stent is in place. The urology office should be contacting you to schedule and appointment. If you do not hear from them by Tuesday please contact them at [phone] Please contact the urologist if you have any uncontrolled pain, fevers > 100F, or inability to urinate. Thank you for allowing us to participate in your care! Pending Studies at Discharge: Yes (urine culture ) Stand-Alone Forms: [facility], Smoking Cessation Medications and DC Order Prescriptions: New tamsulosin 0.4 mg Capsule 0.4 mg PO QAM 14 Days Qty: 14 0RF oxybutynin chloride 5 mg tablet 5 mg PO TID PRN (Reason: bladder spasms) Qty: 6 0RF phenazopyridine [Pyridium] 100 mg tablet 100 mg PO Q8H PRN (Reason: pain with urination) Qty: 6 0RF Rx Instructions: can discolor urine ciprofloxacin HCl 500 mg tablet 500 mg PO BID Qty: 8 0RF Continued compound face Cream 1 applic topical DIRECTED Rx Instructions: Tretinoin 0.01% Azelaic 2% Niacinamide 4% Apply to clean face Nightly infliximab [Remicade] 100 mg recon soln 1,034 mg IV ONCE Rx Instructions: INFUSE EVERY 8 WEEKS Approved from 10/26/22-10/27/23 Auth Number [id number] Premedication: Loratadine 10mg PO Prior to infusion Tylenol 500mg PO prior to infusion. LABS: CMP, CBC with each infusion. Call office with any questions or concerns [phone] hydroxyzine HCl 25 mg tablet 25 mg PO Q6H PRN (Reason: Anxiety) Qty: 360 1RF sertraline 100 mg tablet 150 mg PO HS 90 Days Qty: 135 3RF trazodone 100 mg tablet 100 mg PO QPM Qty: 90 3RF famotidine 40 mg tablet 40 mg PO BID 90 Days Qty: 180 3RF fludrocortisone 0.1 mg tablet 0.2 mg PO DAILY Qty: 60 5RF Patient Comments: qam cholecalciferol (vitamin D3) 1,250 mcg (50,000 unit) capsule 50,000 unit PO .weekly Qty: 16 0RF (DME) Shower Chair Misc See Rx Instructions .Route Qty: 1 0RF Rx Instructions: As directed R55 etonogestrel-ethinyl estradiol [NuvaRing] 0.12-0.015 mg/24 hr ring 1 vag ring vaginal ONCE Qty: 3 0RF naproxen 500 mg tablet 500 mg PO DAILY PRN (Reason: pain) 90 Days Qty: 90 1RF Ajovy Autoinjector 225 mg/1.5 mL auto-injector 225 mg subcut .COMPLEX 90 Days Qty: 4.5 1RF Rx Instructions: 225 mg subcutaneously [id number]; emtricitabine-tenofovir (TDF) 200-300 mg tablet 1 tab PO DAILY Ubrelvy 100 mg tablet 100 mg PO .COMPLEX PRN (Reason: Migraine Headache) Rx Instructions: 100 mg orally ONCE AT MIGRAINE ONSET. MAY REPEAT IN 2 HRS PRN; ondansetron HCl 4 mg tablet 4 mg PO Q6H PRN (Reason: Nausea And Vomiting) mupirocin 2 % ointment 1 applic topical BID PRN (Reason: Mouth Irritation) Rx Instructions: apply to lesions on area around mouth if not improving Discharge Orders: Discharge Order (Routine); Ordered 11/18/24 Ordered By: Brionna Sheppard Admission Data Admit Date/Time: 11/18/24 09:25 Attending Provider: Cortez Funk Admit Provider: Cortez Funk Primary Care Provider: Tracy Jeffries Other Providers: Cortez Funk; Fredis Godinez Hospital Stay Data Consultations 11/18/24 08:53 ED Decision to Admit Stat 11/18/24 08:57 Consult Urology Stat Procedures Performed Operation Date: 11/18/24 09:05 Actual Procedures p Cystoscopy Retrograde Pyelogram, right ureteral stent insertion (Right) - Fredis Godinez MD Diagnostic Imagining Performed 11/18/24 [place] retrograde includes kub Routine 11/18/24 05:48 CT abd pelvis wo con Stat Pending Results Patient Have Any Pending Studies at Discharge: Yes (urine culture ) Discharge Instructions Given to Patient (Per Discharging Provider) Ms. Hyde, You were hospitalized after having flank pain found to be from kidney stones. You were seen by urology and taken to the OR to have a stent placed on 11/[address] Godinez. Your urine was also concerning for infection so you have been started on antibiotics, these will be continued at discharge. You will need to follow up with urology for stent removal and possible stone treatment. Medication Changes/Recommendations: * Continue flomax daily while stent in place - this is to help with easier passage of urine * Pyridium as needed for pain with urination - this can cause your urine/feces to be discolored/orange * Ciprofloxacin -antibiotic . Please take the entire course, even if you feel well. * Pain control - tylenol and ibuprofen as directed, oxybutynin as needed or spasms It is normal to still have discomfort in the flank area while the stent is in place, this pain may be worse with movement. Blood tinged urine can also be common. If you are having persistent dark bloody urine or thick bloody urine for >8 hours please contact your urologist. It is important that you are staying hydrated while the stent is in place. The urology office should be contacting you to schedule and appointment. If you do not hear from them by Tuesday please contact them at [phone] Please contact the urologist if you have any uncontrolled pain, fevers > 100F, or inability to urinate. Thank you for allowing us to participate in your care! Total Time Total Time Spent Total Time Spent (In Minutes): Time spent day of discharge 65 (including admission) minutes including direct patient care, medication reconciliation, documentation, review of labs and images, and coordination of care. Coding Level of Care Code INP/OBS EV SAME DAY LV 3,85MIN Diagnoses Hydronephrosis N13.30 Hx of gastroesophageal reflux (GERD) Z87.19 POTS (postural orthostatic tachycardia syndrome) G90.A Generalized anxiety disorder F41.1 Major depressive disorder F32.9
[2024-11-18] MEDS ORDERED: FAMOTIDINE 20 MG TAB PO SCH (21:00)
[2024-11-18] MEDS ORDERED: SERTRALINE HCL 50 MG TABLET PO SCH (21:00)
[2024-11-19] MEDS ORDERED: cefTRIAXone SODIUM 2,000 MG/50 ML BAG IV SCH (08:00)
[2024-11-19] MEDS ORDERED: TAMSULOSIN HCL 0.4 MG CAP PO SCH (09:00)
[2024-11-19] MEDS ORDERED: FLUDROCORTISONE ACETATE 0.1 MG TAB PO SCH (09:00)
== END 2024-11-18 18:45 | disposition home or self-care (01) | DRG 661 ==
LOC: ED 05:43 → 3E 09:25 → INTOOBSV 09:25 → OBSVTOIN 09:25 → 3E 11:27

== ENCOUNTER 2024-12-05 21:05 | Observation (INO) ==
--- NOTE | 2024-12-05 22:04 | Emergency Department Note ---
History of Present Illness General Chief complaint: Urinary Symptoms Stated complaint: PAIN W/ URINARY STENT Time Seen by Provider: 12/05/24 21:26 History of Present Illness Maximum Pain Intensity: 9 This 24-year-old female that currently has a right ureteral stent for right urolithiasis presents ER for worsening pain and hematuria with nausea and vomiting. Patient has finished her antibiotics. She scheduled for lithotripsy on the . She has recently seen outpatient urology. Patient denies fever, chills, cough, congestion or any other medical complaints. Home Medications Medication Instructions Recorded Confirmed Type etonogestrel 0.12 mg-ethinyl 1 vag ring vaginal ONCE #3 ea 06/16/22 12/04/24 Rx estradiol 0.015 mg/24 hr vaginal ring (NuvaRing) compound face Cream 1 applic topical DIRECTED 06/18/22 12/04/24 History Shower Chair #1 ea 10/20/22 11/23/24 Rx hydroxyzine HCl 25 mg tablet 25 mg PO Q6H PRN Anxiety #360 tabs 12/08/23 12/04/24 Rx sertraline 100 mg tablet 150 mg (1.5 x 100 mg) PO HS 90 03/19/24 12/04/24 Rx days #135 tabs emtricitabine 200 mg-tenofovir 1 tab PO DAILY 06/18/24 12/04/24 History disoproxil fumarate 300 mg tablet (Truvada) trazodone 100 mg tablet 100 mg PO QPM #90 tabs 08/02/24 12/04/24 Rx famotidine 40 mg tablet 40 mg PO BID 90 days #180 tabs 08/07/24 12/04/24 Rx fremanezumab-vfrm 225 mg/1.5 mL 225 mg (1.5 mL) subcut .COMPLEX 90 08/08/24 12/04/24 Rx subcutaneous auto-injector (Ajovy) days #4.5 mL naproxen 500 mg tablet 500 mg PO DAILY PRN pain 90 days 08/08/24 12/04/24 Rx #90 tabs fludrocortisone 0.1 mg tablet 0.2 mg (2 x 0.1 mg) PO DAILY #60 08/31/24 12/04/24 Rx tabs cholecalciferol (vitamin D3) 1,250 50,000 unit PO .weekly #16 caps 09/10/24 12/04/24 Rx mcg (50,000 unit) capsule mupirocin 2 % topical ointment 1 applic topical BID PRN Mouth 11/02/24 12/04/24 History Irritation phenazopyridine 100 mg tablet 100 mg PO Q8H PRN pain with 11/18/24 12/04/24 Rx (Pyridium) urination 6 doses #6 tabs ubrogepant 100 mg tablet (Ubrelvy) 100 mg PO .COMPLEX PRN Migraine 11/18/24 12/04/24 History Headache ondansetron HCl 4 mg tablet See Rx Instructions .Route 11/19/24 12/04/24 Rx .COMPLEX #60 tabs infliximab 100 mg intravenous 1,034 mg IV .Q6W 11/23/24 12/04/24 History solution (Remicade) oxybutynin chloride 5 mg tablet 5 mg PO TID PRN bladder spasms #60 11/23/24 12/04/24 Rx tabs tamsulosin 0.4 mg capsule 0.4 mg PO QAM 14 days #14 caps 11/27/24 12/04/24 Rx Allergies Allergy/AdvReac Type Severity Reaction Status Date / Time prochlorperazine AdvReac Severe panic Verified 12/04/24 14:11 [From Compazine] attack Past Med/Surg History Problem List (Updated 12/06/24 @ 01:04 by Kirsty Salgado PA-C) Acute UTI (Acute) Renal colic on right side (Acute) Acute right flank pain (Acute) Hand pain, left (Acute) Laceration of left hand (Acute) Dyspepsia Nausea & vomiting Syncope and collapse Tachycardia Vitamin D deficiency Shoulder pain, right GERD (gastroesophageal reflux disease) H/O concussion TMJ (temporomandibular joint disorder) Ankylosing spondylitis Rheumatoid factor positive Polyarthralgia Migraine without aura Obesity History of wisdom tooth extraction Migraines (Chronic) Medical History Renal calculi Hydronephrosis History of tachycardia 03/2024, dx w/ POTS shortly after Hx of syncope 03/2024, w/collapse, dx POTS shortly after per pt. Shoulder pain, right ongoing per pt. Rheumatoid factor positive hx Hx of polyarthritis Hx of migraines Hx of concussion 2022, no residual effects Hx of gastroesophageal reflux (GERD) Hx of ankylosing spondylitis Generalized anxiety disorder Major depressive disorder History of OCD (obsessive compulsive disorder) Hx of temporomandibular joint disorder locks occasionally due to overextertion, "but not for long" POTS (postural orthostatic tachycardia syndrome) dx 03/2024; f/u [facility] cardiology Surgical History S/P ureteral stent placement Hx of esophagogastroduodenoscopy Hx of oral surgery x3 minor surgeries H/O tooth extraction wisdom teeth extracted Family History Grandfather (Maternal) Myocardial infarction Mother Hypertension Stroke Cavernous hemangioma Father Hypertension Bipolar disorder Lung disease Sleep apnea Prediabetes Sister Transgender Depression ADHD Autism Eating disorder Denies family history of Ovarian cancer Prostate cancer Breast cancer Colorectal cancer Social History Smoking Status: Former smoker Tobacco Type: Cigarettes and E-cigarettes / Vaping packs per day: 0; Second Hand Exposure: No; Do You Dip or Chew Tobacco: No; Hx Alcohol Use: Yes Alcohol type: beer, wine and hard liquor Alcohol Intake Frequency: Monthly or Less Hx Substance Use: Yes Non-Prescribed Medications: Marijuana Last Used Substance: Days (ago) Last Used Substance Other:: ~10/28/24 (advised on policy) Substance Use Type Other:: edibles Preferred Language: [place] Islander Communication Ability: Effective Visual Impairment: No Limitations Hearing Ability: Normal Vessel Master Required: No Beliefs That Will Affect Care: None marital status: Single Current Living Situation: Family current occupational status: unemployed 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 Feels Safe at Home: Yes Childhood Exposure to Second-Hand Smoke: No Diet: regular caffeine: Yes during the past year weight has: remained stable Dental Care, Regularly: Yes Physical Activity Frequency: 3-4 Times per Week Seatbelt Use: always Sunscreen Use: Yes Do you think of yourself as: Queer Sexual Activity: has been sexually active within the last 12 months Gender Identity: Genderqueer Assistive Devices: Glasses and Walker Review of Systems A total of 10 systems reviewed and were otherwise negative Physical Exam Vital Signs Vital Signs - 24 hr 12/05/24 21:19 07/23/25 22:05 12/05/24 22:05 Temperature 36.8 C Temperature Source Oral Pulse Rate 106 H 85 Pulse Rate [Apical] 91 H Pulse Rhythm Regular Pulse Rhythm [Apical] Regular Respiratory Rate 20 20 20 Respiratory Effort / Characteristics Non-Labored Spontaneous Non-Labored Spontaneous Respiratory Depth Normal Normal Respiratory Pattern Regular Regular Blood Pressure 152/94 H Blood Pressure [Right Arm] 165/102 H Blood Pressure Mean 113 Blood Pressure Mean [Right Arm] 123 Blood Pressure Position Sitting Pulse Oximetry 97 98 97 Oxygen Delivery Method Room Air Room Air Room Air Sepsis Recent Fever Within 48 Hours No Sepsis New/Unexplained Change in Mental Status N/A Sepsis Action Taken by Nursing No Action Required 12/05/24 23:42 Temperature Temperature Source Pulse Rate 82 Pulse Rate [Apical] Pulse Rhythm Pulse Rhythm [Apical] Respiratory Rate Respiratory Effort / Characteristics Respiratory Depth Respiratory Pattern Blood Pressure Blood Pressure [Right Arm] Blood Pressure Mean Blood Pressure Mean [Right Arm] Blood Pressure Position Pulse Oximetry Oxygen Delivery Method Sepsis Recent Fever Within 48 Hours Sepsis New/Unexplained Change in Mental Status Sepsis Action Taken by Nursing VITALS: Vitals are noted on the nurse's note and reviewed by myself. Vital signs stable. GENERAL: Pleasant female holding her emesis bag, in no acute distress, nondiaphoretic, well-developed well-nourished. SKIN: Capillary reflex less than 2 seconds. HEENT: Normocephalic. PERRLA. EOMI. Nares patent. Mucous membranes moist. Neck is supple without nuchal rigidity. HEART: Regular rate and rhythm LUNGS: Clear to auscultation bilaterally without wheezes, rales or rhonchi. No retractions or accessory muscle use. ABDOMEN: Positive bowel sounds x 4. Normal tympanic percussion. Soft, nontender, without masses or organomegaly. Zhu sign negative. No guarding or rebound tenderness. no CVA tenderness MUSCULOSKELETAL: No gross musculoskeletal defects. NEURO: Patient was alert and oriented to person place and time. No focal neurological deficits. Course Administered Medications Discontinued Medications Doxycycline Hyclate (Doxycycline Hyclate 100 Mg Cap) 100 mg PO NOW STA Stop: 12/05/24 23:12 Last Admin: 12/06/24 00:56 Dose: 100 mg Documented By: ROBER Sodium Chloride (Nss) 1,000 mls @ 999 mls/hr IV .Q1H1M ONE Stop: 12/05/24 22:33 Last Infusion: 12/06/24 00:21 Dose: Infused Documented By: Admin: 12/05/24 22:29 Dose: 999 mls/hr Documented By: ROBER Sodium Chloride (Nss) 1,000 mls @ 999 mls/hr IV .Q1H1M ONE Stop: 12/06/24 00:20 Last Admin: 12/05/24 23:26 Dose: 999 mls/hr Documented By: ROBER Acetaminophen (Ofirmev) 1,000 mg in 100 mls @ 400 mls/hr IV NOW STA Stop: 12/06/24 00:39 Last Admin: 12/06/24 00:55 Dose: 400 mls/hr Documented By: ROBER Ioversol (Optiray 320 125ml) 125 ml IV ONCE ONE Stop: 12/05/24 23:10 Last Admin: 12/05/24 23:09 Dose: 118 ml Documented By: LYNDON Ketorolac Tromethamine (Ketorolac Tromethamine 15 Mg/Ml Vial) 10 mg IV NOW STA Stop: 12/05/24 21:34 Last Admin: 12/05/24 22:28 Dose: 10 mg Documented By: ROBER Morphine Sulfate (Morphine Sulfate 4 Mg/Ml 1 Ml Carp\\Vial) 4 mg IV NOW STA Stop: 12/05/24 23:21 Last Admin: 12/05/24 23:26 Dose: 4 mg Documented By: ROBER Morphine Sulfate (Morphine Sulfate 4 Mg/Ml 1 Ml Carp\\Vial) 4 mg IV NOW STA Stop: 12/06/24 00:26 Last Admin: 12/06/24 00:54 Dose: 4 mg Documented By: ROBER Ondansetron HCl (Ondansetron Inj 2 Mg/Ml 2 Ml Vial) 4 mg IV NOW STA Stop: 12/05/24 21:34 Last Admin: 12/05/24 22:28 Dose: 4 mg Documented By: ROBER Ondansetron HCl (Ondansetron Inj 2 Mg/Ml 2 Ml Vial) 4 mg IV NOW STA Stop: 12/05/24 23:21 Last Admin: 12/05/24 23:25 Dose: 4 mg Documented By: ROBER Medical Decision Making Medical Records Attestation: I reviewed the patient's medical records. Home Medications Current Medication List: was personally reviewed by me Laboratory Data Attestation: I reviewed the patient's lab results. 12/05/24 22:05 12/05/24 22:05 Lab Results 12/05/24 Range/Units 22:05 WBC 10.10 (4.8-10.8) K/ul RBC 4.16 L (4.20-5.40) M/uL Hgb 13.2 (12.0-16.0) g/dl Hct 36.7 L (37.0-47.0) % MCV 88.2 (80.0-100.0) fL MCH 31.7 (25.0-34.0) pg MCHC 36.0 (32.0-36.0) g/dL RDW Std Deviation 37.3 (36.4-46.3) fL RDW Coeff of Zaira 11.7 (11.5-14.5) % Plt Count 282 (130-400) K/uL MPV 9.6 (9.4-12.4) fL Immature Gran % (Auto) 0.2 % Neut % (Auto) 50.4 % Lymph % (Auto) 40.4 % [place] % (Auto) 6.2 % Eos % (Auto) 2.3 % Baso % (Auto) 0.5 % Neut # (Auto) 5.09 (1.40-6.50) K/uL Lymph # (Auto) 4.08 H (1.20-3.40) K/uL [place] # (Auto) 0.63 H (0.11-0.59) K/uL Eos # (Auto) 0.23 (0.00-0.50) K/uL Baso # (Auto) 0.05 (0.00-0.20) K/uL Immature Gran # (Auto) 0.02 (0.01-0.20) K/uL Polychromasia 1+ Sodium 136 (136-145) mmol/L Potassium 3.5 (3.5-5.1) mmol/L Chloride 107 (98-107) mmol/L Carbon Dioxide 19 L (21-32) mmol/L Anion Gap 10 (3-11) BUN 12 (6-23) mg/dl Creatinine 1.04 (0.6-1.2) mg/dl Est Cr Clr Drug Dosing 132.6 ml/min eGFR 76.97 BUN/Creatinine Ratio 11.5 (10-20) Glucose 96 (70-99(Fasting)) mg/dl Calcium 8.6 (8.6-10.3) mg/dl Total Bilirubin 0.3 (0.2-1.0) mg/dl AST 18 (13-39) U/L ALT 15 (7-52) U/L Alkaline Phosphatase 43 (34-104) U/L Total Protein 7.5 (6.0-8.3) gm/dl Albumin 3.8 (3.4-5.0) gm/dl Globulin 3.7 (2.5-4.0) gm/dl Albumin/Globulin Ratio 1.0 (0.9-2) Lipase 14 (11-82) U/L HCG, Qual Negative (Negative) Urine Color Red Urine Appearance Turbid A (Clear) Urine pH 6.0 (4.5-7.5) Ur Specific [place] >= 1.030 (1.000-1.030) Urine Protein 3+ H (Negative) Urine Glucose (UA) Negative (Negative) Urine Ketones Trace H (Negative) Urine Blood 3+ H (Negative) Urine Nitrite Negative (Negative) Urine Bilirubin Negative (Negative) Urine Urobilinogen Negative (Negative) Ur Leukocyte Esterase Trace H (Negative) Urine RBC >20 H (0-2) /hpf Urine WBC 21-50 H (0-5) /hpf Ur Epithelial Cells 3-5 H (0-2) /hpf Urine Bacteria 1+ H (None Seen) Urine Comment Imaging Data Attestation: I personally reviewed and interpreted this imaging study as follows: Radiologist's Impression: Abdomen/Pelvis CT 12/05/24 21:37 Exam(s): CT ABDOMEN + PELVIS With Contrast IV Amt: 119 ML OPTIRAY 320 EXAM: CT Abdomen and Pelvis With Intravenous Contrast CLINICAL HISTORY: Reason for exam: severe right flank/abd pain, stent placed last week. TECHNIQUE: Axial computed tomography images of the abdomen and pelvis with intravenous contrast. CTDI is 28.14 mGy and DLP is 1507.39 mGy-cm. Automated exposure control was utilized for the study. A dose lowering technique was utilized adhering to the principles of ALARA. CONTRAST: Patient received 119 ML OPTIRAY 320 of IV contrast COMPARISON: 11/18/2024 FINDINGS: Lung bases: Unremarkable. No mass. No consolidation. ABDOMEN: Liver: The liver is enlarged measuring 22 cm craniocaudad. No focal liver lesion is seen. Gallbladder and bile ducts: Unremarkable. No calcified stones. No ductal dilation. Pancreas: Unremarkable. No mass. No ductal dilation. Spleen: Unremarkable. No splenomegaly. Adrenals: Unremarkable. No mass. Kidneys and ureters: There is a right-sided double-J ureteral stent extending from the kidney to the urinary bladder. There is slight prominence of the right renal pelvis without overt hydronephrosis. No ureterectasis or ureterolithiasis is seen. Slightly delayed right nephrogram compared to the left. Stomach and bowel: Unremarkable. No obstruction. No mucosal thickening. PELVIS: Appendix: The appendix is normal. Bowel loops are nondilated. No pneumoperitoneum, free fluid, or acute inflammatory changes are seen involving the bowel. Bladder: Unremarkable. No mass. Reproductive: There is a new the ring in the vagina. ABDOMEN and PELVIS: Intraperitoneal space: See above. Bones/joints: No acute fracture. No dislocation. Soft tissues: Unremarkable. Vasculature: Unremarkable. No abdominal aortic aneurysm. Lymph nodes: Unremarkable. No enlarged lymph nodes. IMPRESSION: 1. There is a right-sided double-J ureteral stent extending from the kidney to the urinary bladder. There is slight prominence of the right renal pelvis without overt hydronephrosis. No ureterectasis or ureterolithiasis is seen. Slightly delayed right nephrogram compared to the left. 2. The appendix is normal. Bowel loops are nondilated. No pneumoperitoneum, free fluid, or acute inflammatory changes are seen involving the bowel. Electronically signed by: Pool Arredondo MD 12/06/24 00:56 AM [facility] Narrative Prior records/ancillary studies reviewed. Triage Nursing notes reviewed. Additional history obtained from the family. The patient's history was concerning for flank pain. Differential diagnosis: Etiologies such as renal colic, appendicitis, diverticulitis, mesenteric ischemia, aortic pathology, infections, inflammatory bowel disease, PUD, biliary pathology, UTI, as well as others were entertained. Physical examination findings: As above. ER treatment provided: Toradol, Zofran, IV fluids Morphine x 2 was given, Tylenol was ordered On reassessment the patient felt better. Diagnostic interpretation by me: The labs Independently Interpreted by myself revealed no worrisome leukocytosis. Urinalysis revealed concerns for UTI. [address] [place] [address] / Director: Malathi Ty M.D. Clinical Laboratory Report Name: MARU STERLING Acct: [id number] Status: DEP CLI : [address] [facility] [place] Date: 11/22/24 Age: 24 Sex: F Dis Date: Loc: Laboratory Specimen Drop Off Spec: [id number] Collected: 11/22/24-UNK Received: 11/22/24-[address]: Lili Ramirez PA-C Source: Urine,Random OV Order: Ordered: Urine Culture Procedure Result Verified Site Urine Culture Final 11/25/24-0800 Organism 1 Staphylococcus epidermidis Hurt Count 30,000 CFU/ml Sens Sensitivities to Follow S epidermi RX M.I.C. --- --------- Daptomycin S <=0.5 Linezolid S 2 Nitrofurantoin S <=32 Oxacillin R >2 Tetracycline S <=4 Trimeth/Sulfa R >2/38 Vancomycin S 1 S = SENSITIVE I = INTERMEDIATE R = RESISTANT Imaging studies: Imaging was reviewed and read by radiology Consultation: A consultation was placed with the hospitalist. The case was discussed and diagnostics were reviewed. The patient was evaluated in the ER for further treatment. Consultation was placed with urology, been and the case was discussed. He did evaluate the patient. He recommends pain management. Consultation was placed with pharmacy, Rogelio and recommends doxycycline after reviewing the most recent urine culture. It appears that the patient has isolated renal colic and concerns for persistent UTI. Patient was given antibiotics. She was still moderate amount of pain. Medicine urology consulted. Patient was admitted to the medical service. Patient and family are agreeable. By the evaluation outlined above emergent etiologies such as appendicitis, diverticulitis, mesenteric ischemia, aortic pathology, infections, inflammatory bowel disease, PUD, biliary pathology, UTI, as well as others were deemed relatively unlikely. The pt informed about the findings as listed above. All questions were answered and pleased with the treatment. The chart was completed utilizing [employer] Speech voice recognition software. Grammatical errors, random word insertions, pronoun errors, and incomplete sentences are an occassional consequence of this system due to software limitations, ambient noise, and hardware issues. Any formal questions or concerns about the content, text, or information contained within the body of this dictation should be directly addressed to the physician unit assistant for clarification. Impression & Plan Renal colic on right side, Acute UTI Discharge Plan Visit Data Chief Complaint: Urinary Symptoms Stated Complaint: PAIN W/ URINARY STENT ED Provider: Estevan Alexandra ED Midlevel Provider: Kirsty Salgado Discharge Problem: Renal colic on right side, Acute UTI Patient Disposition: Being Evaluated by Hospitalist Condition: Good Forms Stand Alone Forms: [facility] [email or web address] Prescriptions Prescriptions: No Action compound face Cream 1 applic topical DIRECTED Rx Instructions: Tretinoin 0.01% Azelaic 2% Niacinamide 4% Apply to clean face Nightly hydroxyzine HCl 25 mg tablet 25 mg PO Q6H PRN (Reason: Anxiety) Qty: 360 1RF sertraline 100 mg tablet 150 mg PO HS 90 Days Qty: 135 3RF trazodone 100 mg tablet 100 mg PO QPM Qty: 90 3RF famotidine 40 mg tablet 40 mg PO BID 90 Days Qty: 180 3RF fludrocortisone 0.1 mg tablet 0.2 mg PO DAILY Qty: 60 5RF Patient Comments: qam cholecalciferol (vitamin D3) 1,250 mcg (50,000 unit) capsule 50,000 unit PO .weekly Qty: 16 0RF ondansetron HCl 4 mg tablet See Rx Instructions .ROUTE .COMPLEX Qty: 60 0RF Dose Instruction: TAKE 1 TABLET BY MOUTH EVERY 6 HOURS Rx Instructions: TAKE 1 TABLET BY MOUTH EVERY 6 HOURS tamsulosin 0.4 mg capsule 0.4 mg PO QAM 14 Days Qty: 14 0RF (DME) Shower Chair Misc See Rx Instructions .Route Qty: 1 0RF Rx Instructions: As directed R55 etonogestrel-ethinyl estradiol [NuvaRing] 0.12-0.015 mg/24 hr ring 1 vag ring vaginal ONCE Qty: 3 0RF naproxen 500 mg tablet 500 mg PO DAILY PRN (Reason: pain) 90 Days Qty: 90 1RF Ajovy Autoinjector 225 mg/1.5 mL auto-injector 225 mg subcut .COMPLEX 90 Days Qty: 4.5 1RF Rx Instructions: 225 mg subcutaneously [id number]; emtricitabine-tenofovir (TDF) [Truvada] 200-300 mg tablet 1 tab PO DAILY infliximab [Remicade] 100 mg recon soln 1,034 mg IV .Q6W Rx Instructions: INFUSE EVERY 8 WEEKS Approved from 10/26/22-10/27/23 Auth Number [id number] Premedication: Loratadine 10mg PO Prior to infusion Tylenol 500mg PO prior to infusion. LABS: CMP, CBC with each infusion. Call office with any questions or concerns [phone] oxybutynin chloride 5 mg tablet 5 mg PO TID PRN (Reason: bladder spasms) Qty: 60 0RF Ubrelvy 100 mg tablet 100 mg PO .COMPLEX PRN (Reason: Migraine Headache) Rx Instructions: 100 mg orally ONCE AT MIGRAINE ONSET. MAY REPEAT IN 2 HRS PRN; phenazopyridine [Pyridium] 100 mg tablet 100 mg PO Q8H PRN (Reason: pain with urination) Qty: 6 0RF Rx Instructions: can discolor urine mupirocin 2 % ointment 1 applic topical BID PRN (Reason: Mouth Irritation) Rx Instructions: apply to lesions on area around mouth if not improving Referrals Referrals: Tracy Jeffries MD [Primary Care Provider] -
--- NOTE | 2024-12-05 22:12 | Urology Consultation ---
Date of Consultation December 05, 2024 Assessment & Plan (1) Acute right flank pain: I evaluated the patient C10 with urologic recommendations as follows: I suspect the patient is suffering from stent colic The mainstay of treatment for this will be analgesics I would be hesitant to have the patient have her stent removed until she has undergone formal kidney stone treatment I did recommend to the treating clinician emergency department which perform some type of imaging study to ensure her stent is in good position (a CT scan has been ordered for this purpose and is pending) I also recommended checking some laboratories If imaging reveals patient's stent is in good position and her pain can be adequately controlled she can likely be discharged home If the patient cannot achieve adequate pain control she may require admission for pain control and this can be undertaken by the hospitalist service If any of the labs reveal the patient has not infective process at play this can be treated appropriately as well, although the patient is noted to be afebrile and has not had any shakes, rigors, or chills and I therefore have a low clinical index of suspicion that she has sepsis from urinary source Supervising Physician Co-Signing Physician Notes Discussed patient with SAMUEL. Agree with plan. Suspect stent colic. Labs normal, UA positive which is expected. CT scan showed stent in good position. Recommend supportive care. History of Present Illness Reason for Consultation: Right flank pain, status post ureteral stent placement History of Present Illness This is a 24-year-old female known about any dysuria urology. The patient underwent a cystoscopy with right ureteral stent placement on 11/18/2024 which was performed secondary to a right sided kidney stone. Patient notes that she is scheduled for lithotripsy on 12/12/2024. She presented to the emergency department today secondary to right flank pain. She notes that she has had this pain since her stent has been placed and it radiates to the front of her abdomen. She has not had any fevers, shakes, or chills. She has had associated nausea and vomiting related to the pain. She denies any dysuria but is having intermittent hematuria. She has tried [id number] medications at home to alleviate the pain with no avail. She does not report any other mitigating factors but because of the pain she presented to the emergency department. Since arrival to the emergency department the patient has received 10 mg of intravenous Toradol and 4 mg of intravenous morphine. At the time of my interview the patient was resting in bed and she did not appear to be in any acute distress Allergies Allergy/AdvReac Type Severity Reaction Status Date / Time prochlorperazine AdvReac Severe panic Verified 12/04/24 14:11 [From Compazine] attack Home Medications Medication Instructions Recorded Confirmed Type etonogestrel 0.12 mg-ethinyl 1 vag ring vaginal ONCE #3 ea 06/16/22 12/06/24 Rx estradiol 0.015 mg/24 hr vaginal ring (NuvaRing) compound face Cream 1 applic topical DIRECTED 06/18/22 12/06/24 History Shower Chair #1 ea 10/20/22 12/06/24 Rx hydroxyzine HCl 25 mg tablet 25 mg PO Q6H PRN Anxiety #360 tabs 12/08/23 12/06/24 Rx sertraline 100 mg tablet 150 mg (1.5 x 100 mg) PO HS 90 03/19/24 12/06/24 Rx days #135 tabs emtricitabine 200 mg-tenofovir 1 tab PO DAILY 06/18/24 12/06/24 History disoproxil fumarate 300 mg tablet (Truvada) trazodone 100 mg tablet 100 mg PO QPM #90 tabs 08/02/24 12/06/24 Rx famotidine 40 mg tablet 40 mg PO BID 90 days #180 tabs 08/07/24 12/06/24 Rx fremanezumab-vfrm 225 mg/1.5 mL 225 mg (1.5 mL) subcut .COMPLEX 90 08/08/24 12/06/24 Rx subcutaneous auto-injector (Ajovy) days #4.5 mL naproxen 500 mg tablet 500 mg PO DAILY PRN pain 90 days 08/08/24 12/06/24 Rx #90 tabs mupirocin 2 % topical ointment 1 applic topical BID PRN Mouth 11/02/24 12/06/24 History Irritation ubrogepant 100 mg tablet (Ubrelvy) 100 mg PO .COMPLEX PRN Migraine 11/18/24 12/06/24 History Headache infliximab 100 mg intravenous 1,034 mg IV .Q6W 11/23/24 12/06/24 History solution (Remicade) oxybutynin chloride 5 mg tablet 5 mg PO TID PRN bladder spasms #60 11/23/24 12/06/24 Rx tabs tamsulosin 0.4 mg capsule 0.4 mg PO QAM 14 days #14 caps 11/27/24 12/06/24 Rx cefdinir 300 mg capsule 300 mg PO BID 6 days #12 caps 12/06/24 Rx cholecalciferol (vitamin D3) 1,250 50,000 unit PO WK 12/06/24 12/06/24 History mcg (50,000 unit) capsule fludrocortisone 0.1 mg tablet 0.2 mg PO QAM 12/06/24 12/06/24 History ondansetron HCl 4 mg tablet 4 mg PO Q6 PRN Nausea And Vomiting 12/06/24 12/06/24 History oxycodone 5 mg tablet 5 mg PO Q4H PRN pain (scale score 12/06/24 Rx 8-10) #10 tabs Patient History Medical History Renal calculi Hydronephrosis History of tachycardia 03/2024, dx w/ POTS shortly after Hx of syncope 03/2024, w/collapse, dx POTS shortly after per pt. Shoulder pain, right ongoing per pt. Rheumatoid factor positive hx Hx of polyarthritis Hx of migraines Hx of concussion 2022, no residual effects Hx of gastroesophageal reflux (GERD) Hx of ankylosing spondylitis Generalized anxiety disorder Major depressive disorder History of OCD (obsessive compulsive disorder) Hx of temporomandibular joint disorder locks occasionally due to overextertion, "but not for long" POTS (postural orthostatic tachycardia syndrome) dx 03/2024; f/u [facility] Surgical History S/P ureteral stent placement Hx of esophagogastroduodenoscopy Hx of oral surgery x3 minor surgeries H/O tooth extraction wisdom teeth extracted Family History Grandfather (Maternal) Myocardial infarction Mother Hypertension Stroke Cavernous hemangioma Father Hypertension Bipolar disorder Lung disease Sleep apnea Prediabetes Sister Transgender Depression ADHD Autism Eating disorder Denies family history of Ovarian cancer Prostate cancer Breast cancer Colorectal cancer Social History Smoking Status: Never smoker Tobacco Type: Cigarettes and E-cigarettes / Vaping packs per day: 0; Second Hand Exposure: No; Do You Dip or Chew Tobacco: No; Hx Alcohol Use: Yes Alcohol type: beer, wine and hard liquor Alcohol Intake Frequency: Monthly or Less Hx Substance Use: Yes Non-Prescribed Medications: Marijuana Last Used Substance: Unknown Last Used Substance Other:: ~10/28/24 (advised on policy) Substance Use Type Other:: edibles Preferred Language: Greenlandic Communication Ability: Effective Visual Impairment: No Limitations Hearing 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: Normal 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 Hats Required: No Beliefs That Will Affect Care: None marital status: Single Current Living Situation: Family current occupational status: unemployed 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 Feels Safe at Home: Yes Childhood Exposure to Second-Hand Smoke: No Diet: regular caffeine: Yes during the past year weight has: remained stable Dental Care, Regularly: Yes Physical Activity Frequency: 3-4 Times per Week Seatbelt Use: always Sunscreen Use: Yes Do you think of yourself as: Queer Sexual Activity: has been sexually active within the last 12 months Gender Identity: Genderqueer Assistive Devices: None Review of Systems Review of Systems: All systems reviewed & are unremarkable except as noted in HPI & below Physical Exam Constitutional: WD/WN, vitals as above Eyes: no conjunctival abnormality ENMT: Ears: no hearing impairment Neck: trachea midline Respiratory: normal respiratory effort; no respiratory distress and no labored breathing Cardiovascular: Rate/Rhythm: regular rate and regular rhythm Gastrointestinal (Abdomen): Soft without distention. Musculoskeletal: No gross orthopedic abnormalities Skin: no rashes Neurologic: moves all extremities Psychiatric: A+Ox3, euthymic affect Genitourinary: CVA tenderness noted with percussion on the right, no CVA tenderness with percussion on the left Results & Data Vital Signs (Past 12 Hours) Vital Signs Temp Pulse Resp BP Pulse Ox O2 Del Method 12/05/24 21:19 36.8 C 106 H 20 152/94 H 97 Room Air PG Care Time/CCT Total # of Minutes Spent Total Time Spent with Patient: Total time spent is greater than 50% in coordination of care (as documented) at patient's floor/unit and/or counseling patient: Coding Level of Care Code 69579 OFFICE CONSULT LVL 40M Diagnoses Acute right flank pain R10.9
[2024-12-05] MEDS: ONDANSETRON INJ 2 MG/ML 2 ML VIAL IV STA ×2 (22:28→23:25)
[2024-12-05] MEDS: KETOROLAC TROMETHAMINE 15 MG/ML VIAL IV STA (22:28)
[2024-12-05] MEDS: SODIUM CHLORIDE 0.9% 1,000 ML IV ONE ×2 (22:29→23:26)
[2024-12-05 22:30] LABS: Hematocrit (blood only) 36.7 % (37.0-47.0); Hemoglobin 13.2 g/dl (12.0-16.0); Mean Corpuscular Hemoglobin 31.7 pg (25.0-34.0); Mean Corpuscular Volume 88.2 fL (80.0-100.0); Platelet Count 282 K/uL (130-400); RDW Standard Deviation 37.3 fL (36.4-46.3); Red Blood Count 4.16 M/uL (4.20-5.40); White Blood Count 10.10 K/ul (4.8-10.8)
[2024-12-05 22:37] LABS: Appearance Urine Turbid (Clear); Glucose Urine UA Negative (Negative)
[2024-12-05 22:46] LABS: Alanine Aminotransferase 15.0 U/L (7-52); Albumin Globulin Ratio 1.0 (0.9-2); Alkaline Phosphatase 43.0 U/L (34-104); Anion Gap 10.0 (3-11); Bilirubin,Total 0.3 mg/dl (0.2-1.0); Blood Urea Nitrogen 12.0 mg/dl (6-23); Calcium 8.6 mg/dl (8.6-10.3); Carbon Dioxide 19.0 mmol/L (21-32); Chloride 107.0 mmol/L (98-107); Creatinine Clr Calc Pharmacy 132.6 ml/min; Globulin 3.7 gm/dl (2.5-4.0); Glucose 96.0 mg/dl (70-99(Fasting)); Lipase 14.0 U/L (11-82); Potassium 3.5 mmol/L (3.5-5.1); Sodium 136.0 mmol/L (136-145); Total Protein 7.5 gm/dl (6.0-8.3)
[2024-12-05 22:54] LABS: Immature Granulocytes # (auto) 0.02 K/uL (0.01-0.20); Immature Granulocytes % (auto) 0.2 %; Polychromasia 1+
[2024-12-05 22:56] LABS: Pregnancy Test, Serum Negative (Negative)
[2024-12-05] MEDS: OPTIRAY 320 125ml IV ONE (23:09)
[2024-12-05] MEDS: MoRPHine SULFATE 4 MG/ML 1 ML CARP\\VIAL IV STA (23:26)
[2024-12-06] MEDS: MoRPHine SULFATE 4 MG/ML 1 ML CARP\\VIAL IV STA (00:54)
[2024-12-06] MEDS: ACETAMINOPHEN 1,000 MG/100 ML VIAL IV STA (00:55)
[2024-12-06] MEDS: DOXYCYCLINE HYCLATE 100 MG CAP PO STA (00:56)
--- NOTE | 2024-12-06 00:57 | CT Scan Report ---
Exam(s): CT ABDOMEN + PELVIS With Contrast IV Amt: 119 ML OPTIRAY 320 EXAM: CT Abdomen and Pelvis With Intravenous Contrast CLINICAL HISTORY: Reason for exam: severe right flank/abd pain, stent placed last week. TECHNIQUE: Axial computed tomography images of the abdomen and pelvis with intravenous contrast. CTDI is 28.14 mGy and DLP is 1507.39 mGy-cm. Automated exposure control was utilized for the study. A dose lowering technique was utilized adhering to the principles of ALARA. CONTRAST: Patient received 119 ML OPTIRAY 320 of IV contrast COMPARISON: 11/18/2024 FINDINGS: Lung bases: Unremarkable. No mass. No consolidation. ABDOMEN: Liver: The liver is enlarged measuring 22 cm craniocaudad. No focal liver lesion is seen. Gallbladder and bile ducts: Unremarkable. No calcified stones. No ductal dilation. Pancreas: Unremarkable. No mass. No ductal dilation. Spleen: Unremarkable. No splenomegaly. Adrenals: Unremarkable. No mass. Kidneys and ureters: There is a right-sided double-J ureteral stent extending from the kidney to the urinary bladder. There is slight prominence of the right renal pelvis without overt hydronephrosis. No ureterectasis or ureterolithiasis is seen. Slightly delayed right nephrogram compared to the left. Stomach and bowel: Unremarkable. No obstruction. No mucosal thickening. PELVIS: Appendix: The appendix is normal. Bowel loops are nondilated. No pneumoperitoneum, free fluid, or acute inflammatory changes are seen involving the bowel. Bladder: Unremarkable. No mass. Reproductive: There is a new the ring in the vagina. ABDOMEN and PELVIS: Intraperitoneal space: See above. Bones/joints: No acute fracture. No dislocation. Soft tissues: Unremarkable. Vasculature: Unremarkable. No abdominal aortic aneurysm. Lymph nodes: Unremarkable. No enlarged lymph nodes. IMPRESSION: 1. There is a right-sided double-J ureteral stent extending from the kidney to the urinary bladder. There is slight prominence of the right renal pelvis without overt hydronephrosis. No ureterectasis or ureterolithiasis is seen. Slightly delayed right nephrogram compared to the left. 2. The appendix is normal. Bowel loops are nondilated. No pneumoperitoneum, free fluid, or acute inflammatory changes are seen involving the bowel. Electronically signed by: Pool Arredondo MD 12/06/24 00:56 AM
--- NOTE | 2024-12-06 01:14 | History & Physical Report ---
Date of Service December 06, 2024 Assessment & Plan (1) Renal colic on right side: Plan 24-year-old female PMHx GERD, POTS, RADAMES, MDD, ankylosing spondylosis, and prior R ureteral stent placement 11/18/2024 presenting for R flank pain with hematuria starting night [employer]. Patient is scheduled for lithotripsy 12/12/2024. ED evaluation reveals CBC without leukocytosis, stable H&H; CMP carbon oxide 19; negative; UA positive for infection; liver US no gallstones or biliary duct dilatation, partially visualized R ureteral stent, no R hydronephrosis, trace R pleural effusion; CTAP R sided double-J ureteral stent slight prominence of the R renal pelvis without overt hydronephrosis.; Provided with 2L NSS, Zofran 4 mg IV x 2, morphine 4 franklin IV x 2, ketorolac 10 mg IV, doxycycline 10 mg p.o., and acetaminophen 1 g IV in ED. #R flank pain/UTI S/p cystoscopy with R ureteral stent placed 11/28/2024 secondary to R renal calculi, scheduled for lithotripsy 12/12/2024. Patient takes oxybutynin, Pyridium, and tamsulosin as outpatient. Pt without LUTS, no F/C, no leukocytosis. However, pt is on immunosuppressive therapy and UA ? infected, doxy was given in ED. - CBC without leukocytosis, CMP normal renal functions - CBC, BMP a.m. - UA appearing infected; pending cx - Liver US no gallstones or biliary duct dilatation, partially visualized R ureteral stent, no hydronephrosis - CTAP R sided double-J ureteral stents slight prominence of the R renal pelvis without overt hydronephrosis - NPO - IVF NSS at 125 mL/hr - Pain management acetaminophen, ketorolac, morphine for severe pain/breakthrough pain - Zofran prn N/V - Continue outpatient medications oxybutynin, tamsulosin - Doxycycline p.o. x 1 given in ED -- continue doxy po BID - Urology consulted - appreciate input and recs #Ankylosing spondylitis- Remicade (q6 weeks, due week of 12/03) #POTS- Fludrocortisone - continue #Migraines- Ajovy (due 12/12), Ubrelvy prn - continue prn #GERD- Famotidine - continue #Psych- Hydroxyzine prn, sertraline, trazodone - continue Dispo: Obs, med/tele VTE Prophylaxis: SCDs This document was dictated utilizing [employer]. Please excuse any grammatical errors that may be secondary to use of this software. Admission and Anticipated Discharge Date Admission Date: 12/06/2024 History of Present Illness Chief Complaint: R flank pain Primary Care Provider: Tracy Jeffries MD 24-year-old female PMHx GERD, POTS, RADAMES, MDD, ankylosing spondylosis, and prior R ureteral stent placement 11/18/2024 presenting for R flank pain with hematuria starting night [employer]. Patient is scheduled for lithotripsy 12/12/2024. States that since her stent placement she has been managing her pain well with Tylenol and managing her bladder spasms with oxybutynin without concerns. However, night [employer] she started to develop significant R sided flank pain, rating it a 9 out of 10 on the pain scale at its worst and describing it as a dull sensation that had occasional sharp jabs when her bladder would spasm. She states that this was different from how she has been feeling so she decided to take her medications, wait a little bit of time, and then whenever the pain did not get any better, come to the ED. She states that the pain is in her R flank and wraps around to her R groin. She states that the pain became "unbearable" and she did have 2 episodes of emesis because of the pain. She notes that she has had hematuria since her stent placement, stating that she occasionally will pass very tiny clots in her urine and then have some bleeding after this, but this has been ongoing. Otherwise denies dysuria, urinary urgency, or frequency. She denies fever or chills. No chest pain, SOB, palpitations, diarrhea/constipation, URI symptoms, syncope, or weakness. ED evaluation reveals CBC without leukocytosis, stable H&H; CMP carbon oxide 19; negative; UA positive for infection; liver US no gallstones or biliary duct dilatation, partially visualized R ureteral stent, no R hydronephrosis, trace R pleural effusion; CTAP R sided double-J ureteral stent slight prominence of the R renal pelvis without overt hydronephrosis.; Provided with 2L NSS, Zofran 4 mg IV x 2, morphine 4 franklin IV x 2, ketorolac 10 mg IV, doxycycline 10 mg p.o., and acetaminophen 1 g IV in ED. Please see Dr. Arredondo's attestation for adjustments/additions to treatment plan. Allergies Allergy/AdvReac Type Severity Reaction Status Date / Time prochlorperazine AdvReac Severe panic Verified 12/04/24 14:11 [From Compazine] attack Home Medications Medication Instructions Recorded Confirmed Type etonogestrel 0.12 mg-ethinyl 1 vag ring vaginal ONCE #3 ea 06/16/22 12/06/24 Rx estradiol 0.015 mg/24 hr vaginal ring (NuvaRing) compound face Cream 1 applic topical DIRECTED 06/18/22 12/06/24 History Shower Chair #1 ea 10/20/22 12/06/24 Rx hydroxyzine HCl 25 mg tablet 25 mg PO Q6H PRN Anxiety #360 tabs 12/08/23 12/06/24 Rx sertraline 100 mg tablet 150 mg (1.5 x 100 mg) PO HS 90 03/19/24 12/06/24 Rx days #135 tabs emtricitabine 200 mg-tenofovir 1 tab PO DAILY 06/18/24 12/06/24 History disoproxil fumarate 300 mg tablet (Truvada) trazodone 100 mg tablet 100 mg PO QPM #90 tabs 08/02/24 12/06/24 Rx famotidine 40 mg tablet 40 mg PO BID 90 days #180 tabs 08/07/24 12/06/24 Rx fremanezumab-vfrm 225 mg/1.5 mL 225 mg (1.5 mL) subcut .COMPLEX 90 08/08/24 12/06/24 Rx subcutaneous auto-injector (Ajovy) days #4.5 mL naproxen 500 mg tablet 500 mg PO DAILY PRN pain 90 days 08/08/24 12/06/24 Rx #90 tabs mupirocin 2 % topical ointment 1 applic topical BID PRN Mouth 11/02/24 12/06/24 History Irritation ubrogepant 100 mg tablet (Ubrelvy) 100 mg PO .COMPLEX PRN Migraine 11/18/24 07/09/07 History Headache infliximab 100 mg intravenous 1,034 mg IV .Q6W 11/23/24 12/06/24 History solution (Remicade) oxybutynin chloride 5 mg tablet 5 mg PO TID PRN bladder spasms #60 11/23/24 12/06/24 Rx tabs tamsulosin 0.4 mg capsule 0.4 mg PO QAM 14 days #14 caps 11/27/24 12/06/24 Rx cholecalciferol (vitamin D3) 1,250 50,000 unit PO WK 12/06/24 12/06/24 History mcg (50,000 unit) capsule fludrocortisone 0.1 mg tablet 0.2 mg PO QAM 12/06/24 12/06/24 History ondansetron HCl 4 mg tablet 4 mg PO Q6 PRN Nausea And Vomiting 12/06/24 12/06/24 History Past Med/Surg History Problem List (Updated 12/06/24 @ 02:12 by Idania Norman) Acute UTI (Acute) Renal colic on right side (Acute) Acute right flank pain (Acute) Hand pain, left (Acute) Laceration of left hand (Acute) Dyspepsia Nausea & vomiting Syncope and collapse Tachycardia Vitamin D deficiency Shoulder pain, right GERD (gastroesophageal reflux disease) H/O concussion TMJ (temporomandibular joint disorder) Ankylosing spondylitis Rheumatoid factor positive Polyarthralgia Migraine without aura Obesity History of wisdom tooth extraction Migraines (Chronic) Medical History Renal calculi Hydronephrosis History of tachycardia 03/2024, dx w/ POTS shortly after Hx of syncope 03/2024, w/collapse, dx POTS shortly after per pt. Shoulder pain, right ongoing per pt. Rheumatoid factor positive hx Hx of polyarthritis Hx of migraines Hx of concussion 2022, no residual effects Hx of gastroesophageal reflux (GERD) Hx of ankylosing spondylitis Generalized anxiety disorder Major depressive disorder History of OCD (obsessive compulsive disorder) Hx of temporomandibular joint disorder locks occasionally due to overextertion, "but not for long" POTS (postural orthostatic tachycardia syndrome) dx 03/2024; f/u [facility] Surgical History S/P ureteral stent placement Hx of esophagogastroduodenoscopy Hx of oral surgery x3 minor surgeries H/O tooth extraction wisdom teeth extracted Family History Grandfather (Maternal) Myocardial infarction Mother Hypertension Stroke Cavernous hemangioma Father Hypertension Bipolar disorder Lung disease Sleep apnea Prediabetes Sister Transgender Depression ADHD Autism Eating disorder Denies family history of Ovarian cancer Prostate cancer Breast cancer Colorectal cancer Social History Smoking Status: Never smoker Tobacco Type: Cigarettes and E-cigarettes / Vaping packs per day: 0; Second Hand Exposure: No; Do You Dip or Chew Tobacco: No; Tobacco Cessation Education Requested by Patient: No Hx Alcohol Use: Yes Alcohol type: beer, wine and hard liquor Alcohol Intake Frequency: Monthly or Less Hx Substance Use: Yes Non-Prescribed Medications: Marijuana Last Used Substanc e: Unknown Last Used Substance Other:: ~10/28/24 (advised on policy) Substance Use Type Other:: edibles Preferred Language: Andorran Communication Ability: Effective Visual Impairment: No Limitations Hearing Ability: Normal Community Cultural Development Officer Required: No Beliefs That Will Affect Care: None marital status: Single Current Living Situation: Family current occupational status: unemployed 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 Other Information That Helps Us Care for You: No Feels Safe at Home: Yes Safety Concerns: Feels Safe At This Time Childhood Exposure to Second-Hand Smoke: No Diet: regular caffeine: Yes during the past year weight has: remained stable Dental Care, Regularly: Yes Physical Activity Frequency: 3-4 Times per Week Seatbelt Use: always Sunscreen Use: Yes Do you think of yourself as: Queer Sexual Activity: has been sexually active within the last 12 months Gender Identity: Genderqueer Assistive Devices: None Review of Systems Review of Systems: All systems reviewed & are unremarkable except as noted in Subjective Physical Exam Physical Exam: General: No acute distress Skin: Warm and dry Head: Normocephalic, atraumatic Eyes: PERRL, conjunctivae clear, sclera non-icteric ENT: External ear and ear canal without swelling; nose atraumatic; good dentition, tongue normal appearance, pharynx normal Neck: Supple, no LAD Cardio: RRR, no M/G/R, S1 and S2 normal Resp: No respiratory distress, Lungs CTA in all lobes bilaterally, no wheezes, rales, or rhonchi Abdomen: Soft, symmetric, mild tenderness to palpation lower abdomen, R > L side; No masses or hepatosplenomegaly; Bowel sounds normoactive MSK: No deformities; pulses palpable and equal; no edema. Neuro: Awake, alert; Sensation intact bilaterally; CN grossly intact Psych: Appropriate mood and affect; good judgement and insight. Mother present in room at time of visit. Results & Data Results & Data Vital Signs (Past 12 Hours) Vital Signs Temp Pulse Pulse Resp BP BP Pulse Ox 12/05/24 23:42 82 12/05/24 22:05 85 20 97 12/05/24 22:05 91 H 20 165/102 H 98 12/05/24 21:19 36.8 C 106 H 20 152/94 H 97 O2 Del Method 12/05/24 23:42 12/05/24 22:05 Room Air 12/05/24 22:05 Room Air 12/05/24 21:19 Room Air Laboratory Results 12/05/24 22:05 WBC 10.10 RBC 4.16 L Hgb 13.2 Hct 36.7 L MCV 88.2 MCH 31.7 MCHC 36.0 RDW Std Deviation 37.3 RDW Coeff of Zaira 11.7 Plt Count 282 MPV 9.6 Immature Gran % (Auto) 0.2 Neut % (Auto) 50.4 Lymph % (Auto) 40.4 [place] % (Auto) 6.2 Eos % (Auto) 2.3 Baso % (Auto) 0.5 Neut # (Auto) 5.09 Lymph # (Auto) 4.08 H [place] # (Auto) 0.63 H Eos # (Auto) 0.23 Baso # (Auto) 0.05 Immature Gran # (Auto) 0.02 Polychromasia 1+ Sodium 136 Potassium 3.5 Chloride 107 Carbon Dioxide 19 L Anion Gap 10 BUN 12 Creatinine 1.04 Est Cr Clr Drug Dosing 132.6 eGFR 76.97 BUN/Creatinine Ratio 11.5 Glucose 96 Calcium 8.6 Total Bilirubin 0.3 AST 18 ALT 15 Alkaline Phosphatase 43 Total Protein 7.5 Albumin 3.8 Globulin 3.7 Albumin/Globulin Ratio 1.0 Lipase 14 HCG, Qual Negative Urine Color Red Urine Appearance Turbid A Urine pH 6.0 Ur Specific [place] >= 1.030 Urine Protein 3+ H Urine Glucose (UA) Negative Urine Ketones Trace H Urine Blood 3+ H Urine Nitrite Negative Urine Bilirubin Negative Urine Urobilinogen Negative Ur Leukocyte Esterase Trace H Urine RBC >20 H Urine WBC 21-50 H Ur Epithelial Cells 3-5 H Urine Bacteria 1+ H Urine Comment Diagnostic Findings Abdomen/Pelvis CT 12/05/24 21:37 Exam(s): CT ABDOMEN + PELVIS With Contrast IV Amt: 119 ML OPTIRAY 320 EXAM: CT Abdomen and Pelvis With Intravenous Contrast CLINICAL HISTORY: Reason for exam: severe right flank/abd pain, stent placed last week. TECHNIQUE: Axial computed tomography images of the abdomen and pelvis with intravenous contrast. CTDI is 28.14 mGy and DLP is 1507.39 mGy-cm. Automated exposure control was utilized for the study. A dose lowering technique was utilized adhering to the principles of ALARA. CONTRAST: Patient received 119 ML OPTIRAY 320 of IV contrast COMPARISON: 11/18/2024 FINDINGS: Lung bases: Unremarkable. No mass. No consolidation. ABDOMEN: Liver: The liver is enlarged measuring 22 cm craniocaudad. No focal liver lesion is seen. Gallbladder and bile ducts: Unremarkable. No calcified stones. No ductal dilation. Pancreas: Unremarkable. No mass. No ductal dilation. Spleen: Unremarkable. No splenomegaly. Adrenals: Unremarkable. No mass. Kidneys and ureters: There is a right-sided double-J ureteral stent extending from the kidney to the urinary bladder. There is slight prominence of the right renal pelvis without overt hydronephrosis. No ureterectasis or ureterolithiasis is seen. Slightly delayed right nephrogram compared to the left. Stomach and bowel: Unremarkable. No obstruction. No mucosal thickening. PELVIS: Appendix: The appendix is normal. Bowel loops are nondilated. No pneumoperitoneum, free fluid, or acute inflammatory changes are seen involving the bowel. Bladder: Unremarkable. No mass. Reproductive: There is a new the ring in the vagina. ABDOMEN and PELVIS: Intraperitoneal space: See above. Bones/joints: No acute fracture. No dislocation. Soft tissues: Unremarkable. Vasculature: Unremarkable. No abdominal aortic aneurysm. Lymph nodes: Unremarkable. No enlarged lymph nodes. IMPRESSION: 1. There is a right-sided double-J ureteral stent extending from the kidney to the urinary bladder. There is slight prominence of the right renal pelvis without overt hydronephrosis. No ureterectasis or ureterolithiasis is seen. Slightly delayed right nephrogram compared to the left. 2. The appendix is normal. Bowel loops are nondilated. No pneumoperitoneum, free fluid, or acute inflammatory changes are seen involving the bowel. Electronically signed by: Pool Arredondo MD 12/06/24 00:56 AM Medications Administered 2L NSS Zofran 4 mg IV x 2 Morphine 4 mg IV x 2 Ketorolac 10 mg IV Doxycycline 100 mg p.o. x 1 Acetaminophen 1 g IV Code Status & VTE Plan Code Status Full PG Care Time/CCT Total # of Minutes Spent Total Time Spent with Patient: Total time spent is greater than 50% in coordination of care (as documented) at patient's floor/unit and/or counseling patient: Coding Level of Care Code 31942 INT INP/OBS CARE 3/75MIN Diagnoses Renal colic on right side N23
[2024-12-06] MEDS ORDERED: MoRPHine SULFATE 4 MG/ML 1 ML CARP\\VIAL IV PRN (01:48)
[2024-12-06] MEDS ORDERED: ACETAMINOPHEN 500 MG TAB PO PRN (01:48)
[2024-12-06] MEDS ORDERED: ONDANSETRON INJ 2 MG/ML 2 ML VIAL IV PRN ×2 (01:48→02:17)
[2024-12-06] MEDS ORDERED: MoRPHine SULFATE 2 MG/ML CARP IV PRN (01:48)
[2024-12-06] MEDS ORDERED: KETOROLAC TROMETHAMINE 15 MG/ML VIAL IV PRN (01:48)
[2024-12-06 02:02] VITALS: O2SAT 98
[2024-12-06] MEDS ORDERED: POLYETHYLENE (MIRALAX) 17 GM PACK PO PRN (02:17)
[2024-12-06] MEDS ORDERED: MELATONIN 3 MG TAB PO PRN (02:17)
[2024-12-06 02:34] VITALS: TEMP 98.4
[2024-12-06] MEDS: SODIUM CHLORIDE 0.9% 1,000 ML IV SCH (03:46)
[2024-12-06 07:18] VITALS: BP 143/81; PULSE 69; RESP 18
[2024-12-06] MEDS ORDERED: cefTRIAXone SODIUM 1,000 MG/50 ML BAG IV SCH (08:00)
[2024-12-06 08:07] LABS: Hematocrit (blood only) 33.1 % (37.0-47.0); Hemoglobin 12.2 g/dl (12.0-16.0); Mean Corpuscular Hemoglobin 33.2 pg (25.0-34.0); Mean Corpuscular Volume 89.9 fL (80.0-100.0); Platelet Count 253 K/uL (130-400); RDW Standard Deviation 38.5 fL (36.4-46.3); Red Blood Count 3.68 M/uL (4.20-5.40); White Blood Count 10.21 K/ul (4.8-10.8)
[2024-12-06 08:26] LABS: Anion Gap 5.0 (3-11); Blood Urea Nitrogen 9.0 mg/dl (6-23); Calcium 8.1 mg/dl (8.6-10.3); Carbon Dioxide 23.0 mmol/L (21-32); Chloride 111.0 mmol/L (98-107); Creatinine Clr Calc Pharmacy 163.6 ml/min; Glucose 87.0 mg/dl (70-99(Fasting)); Potassium 3.8 mmol/L (3.5-5.1); Sodium 139.0 mmol/L (136-145)
[2024-12-06] MEDS ORDERED: DOXYCYCLINE HYCLATE 100 MG CAP PO SCH (09:00)
--- NOTE | 2024-12-06 09:44 | Urology Progress Note ---
Date of Service December 06, 2024 Assessment & Plan (1) Acute UTI: (2) Renal colic on right side: (3) Acute right flank pain: Plan She underwent a cystoscopy with right ureteral stent placement on 11/18/2024 which was performed secondary to a right sided kidney stone. She is scheduled for lithotripsy on 12/12/2024. Labs reviewed-creatinine 0.84, WBCs 10.21, hemoglobin 12.2 CT 12/05 showed right-sided double-J ureteral stent extending from the kidney to the bladder with prominent of the right renal pelvis without overt hydronephrosis - in good position Subjectively she is feeling better, minimal pain at this time No urine culture or blood cultures pending Did receive ceftriaxone Other medical management, antibiotics and comfort care per primary team Discussed pain control with analgesics until her surgical intervention next Tuesday 12/12 Urology will sign off Please recontact our service for any questions or concerns Case discussed with Dr. Bundy Admission and Anticipated Discharge Date Admission Date: December 06, 2024 Subjective Patient resting comfortably in bed NAD Denies dysuria, gross hematuria, fevers, chills, nausea, and vomiting. Currently 3 out of 10 right flank pain-improved since she has been in the hospital Did have vomiting yesterday associated with pain but none currently First instance of nephrolithiasis Review of Systems Constitutional: as per Subjective / HPI Genitourinary: as per Subjective / HPI Physical Exam Constitutional: well developed and well nourished; no acute distress Respiratory: normal respiratory effort and able to speak in complete sentences Musculoskeletal: Extremities: extremities normal to inspection Psychiatric: Orientation: alert and oriented x 3 Results & Data Vital Signs (Past 12 Hours) Vital Signs Temp Pulse Pulse Pulse Resp BP BP 12/06/24 07:17 36.9 C 69 18 143/81 H 12/06/24 02:20 36.9 C 75 16 139/92 12/06/24 02:00 81 13 139/87 12/06/24 01:06 89 18 137/88 12/06/24 00:36 85 16 138/85 12/06/24 00:30 85 16 12/06/24 00:11 86 23 145/102 H 12/06/24 00:00 81 17 12/05/24 23:42 82 12/05/24 23:36 87 15 127/83 12/05/24 23:15 89 15 146/98 H 12/05/24 22:51 98 H 20 12/05/24 22:27 88 17 12/05/24 22:05 85 20 12/05/24 22:05 91 H 20 165/102 H Pulse Ox O2 Del Method 12/06/24 07:17 98 Room Air 12/06/24 02:20 98 Room Air 12/06/24 02:00 98 Room Air 12/06/24 01:06 95 Room Air 12/06/24 00:36 94 Room Air 12/06/24 00:30 95 Room Air 12/06/24 00:11 96 Room Air 12/06/24 00:00 98 Room Air 12/05/24 23:42 12/05/24 23:36 98 Room Air 12/05/24 23:15 97 Room Air 12/05/24 22:51 96 Room Air 12/05/24 22:27 97 Room Air 12/05/24 22:05 97 Room Air 12/05/24 22:05 98 Room Air PG Care Time/CCT Total # of Minutes Spent Total Time Spent with Patient: Total time spent is greater than 50% in coordination of care (as documented) at patient's floor/unit and/or counseling patient: Coding Level of Care Code 46479 SUB INP/OBS CARE 2/35MIN Diagnoses Acute UTI N39.0 Renal colic on right side N23 Acute right flank pain R10.9
--- NOTE | 2024-12-06 10:09 | Discharge Summary ---
Discharge Summary Date of Service December 06, 2024 Principal Dx & Hospital Course #1 = Principal Diagnosis (1) Renal colic on right side: Plan 24-year-old female PMHx GERD, POTS, RADAMES, MDD, ankylosing spondylosis, and prior R ureteral stent placement 11/18/2024 presenting for R flank pain with hematuria starting night [employer]. Patient is scheduled for lithotripsy 12/12/2024. #R flank pain/UTI S/p cystoscopy with R ureteral stent placed 11/28/2024 secondary to R renal calculi, scheduled for lithotripsy 12/12/2024. Patient takes oxybutynin, Pyridium, and tamsulosin as outpatient. Pt without LUTS, no F/C, no leukocytosis. However, pt is on immunosuppressive therapy and UA ? infected, doxy was given in ED. UA + for infection, no culture sent given mild urinalysis Recently had a course of bactrim outpatient Liver US negative CTAP: R sided double J ureteral stents, slight prominence of R renal pelvis w/o overt hydronephrosis s/p IVF & pain medication Urology consulted --> recommending supportive care & follow up outpatient for procedures. Sent home on Cefdinir x 6 more days to complete a course of antibiotics. Also sent w/ Oxybutynin for urinary discomfort & Oxycodone q4h prn for breakthrough pain. Patient reports she has Zofan at home & was encouraged to use this for N/V #Ankylosing spondylitis- Remicade (q6 weeks, due week of 12/03) #POTS- Fludrocortisone - continue #Migraines- Ajovy (due 12/12), Ubrelvy prn - continue prn #GERD- Famotidine - continue #Psych- Hydroxyzine prn, sertraline, trazodone - continue Discharged home 12/06. Admission HPI Per Admitting Provider 24-year-old female PMHx GERD, POTS, RADAMES, MDD, ankylosing spondylosis, and prior R ureteral stent placement 11/18/2024 presenting for R flank pain with hematuria starting night [employer]. Patient is scheduled for lithotripsy 12/12/2024. States that since her stent placement she has been managing her pain well with Tylenol and managing her bladder spasms with oxybutynin without concerns. However, night [employer] she started to develop significant R sided flank pain, rating it a 9 out of 10 on the pain scale at its worst and describing it as a dull sensation that had occasional sharp jabs when her bladder would spasm. She states that this was different from how she has been feeling so she decided to take her medications, wait a little bit of time, and then whenever the pain did not get any better, come to the ED. She states that the pain is in her R flank and wraps around to her R groin. She states that the pain became "unbearable" and she did have 2 episodes of emesis because of the pain. She notes that she has had hematuria since her stent placement, stating that she occasionally will pass very tiny clots in her urine and then have some bleeding after this, but this has been ongoing. Otherwise denies dysuria, urinary urgency, or frequency. She denies fever or chills. No chest pain, SOB, palpitations, diarrhea/constipation, URI symptoms, syncope, or weakness. ED evaluation reveals CBC without leukocytosis, stable H&H; CMP carbon oxide 19; negative; UA positive for infection; liver US no gallstones or biliary duct dilatation, partially visualized R ureteral stent, no R hydronephrosis, trace R pleural effusion; CTAP R sided double-J ureteral stent slight prominence of the R renal pelvis without overt hydronephrosis.; Provided with 2L NSS, Zofran 4 mg IV x 2, morphine 4 franklin IV x 2, ketorolac 10 mg IV, doxycycline 10 mg p.o., and acetaminophen 1 g IV in ED. Please see Dr. Arredondo's attestation for adjustments/additions to treatment plan. Discharge Exam Constitutional WD/WN, vitals as above Eyes PERRL, conjunctivae normal, anicteric sclerae Respiratory normal respiratory effort Skin no rashes, warm and dry Neurologic PERRL, EOMI, accommodation nl, no face palsy, no dysarthria Psychiatric A+Ox3, euthymic affect Discharge Plan Discharge Items Patient Disposition: Home - Self-Care Reason For Visit: R FLANK PAIN,STENT COLIC Discharge Diagnosis: Stent colic, UTI Condition on Discharge: Good Activity: Resume your previous activity Non-emergency contact: Primary Care Provider and Urologist Call non-emergency contact if: you have any medication questions, your symptoms worsen and you have a fever Follow-up/Referrals: Tracy Jeffries MD [Primary Care Provider] - 12/12/24 2:30 pm (APPT W/ WILMER MICHELLE MD) Fredis Godinez MD [Physician] - (planned surgery on 12/12) Diet: Regular Addtl Attending Provider Instructions: Ms. Hyde, You were recently hospitalized for flank pain. You were found to have pain secondary to your ureteral stent and also a UTI. You were given antibiotics, pain medication, and IV fluid with improvement. Urology evaluated you while you were in the hospital and recommended supportive care with pain medication & to follow up for your upcoming procedure with them. Please see recommendations below regarding your discharge. Please take Cefdinir twice daily for the next 6 days. Please take with food to avoid GI upset. Please take Tylenol 1000mg every 8 hours to help with your flank pain. You may use Ibuprofen for breakthrough pain. For severe pain, please use oxycodone 5mg every 4 hours as needed (pain 8,9,10 on pain scale). You may also use Oxybutynin 5mg three times daily as needed for urinary discomfort as well. Please use Zofran as needed for nausea or vomiting. Please resume the remainder of your medications unless stated otherwise below. Please follow up w/ urology as scheduled. Please follow up with your PCP within 1-2 weeks of discharge. Best of luck! Magalys Senior PA-C Pending Studies at Discharge: No Stand-Alone Forms: My [facility] [employer], Smoking Cessation Medications and DC Order Prescriptions: New cefdinir 300 mg capsule 300 mg PO BID 6 Days Qty: 12 0RF oxycodone 5 mg tablet 5 mg PO Q4H PRN (Reason: pain (scale score 8-10)) Qty: 10 0RF Continued compound face Cream 1 applic topical DIRECTED Rx Instructions: Tretinoin 0.01% Azelaic 2% Niacinamide 4% Apply to clean face Nightly hydroxyzine HCl 25 mg tablet 25 mg PO Q6H PRN (Reason: Anxiety) Qty: 360 1RF sertraline 100 mg tablet 150 mg PO HS 90 Days Qty: 135 3RF trazodone 100 mg tablet 100 mg PO QPM Qty: 90 3RF famotidine 40 mg tablet 40 mg PO BID 90 Days Qty: 180 3RF tamsulosin 0.4 mg capsule 0.4 mg PO QAM 14 Days Qty: 14 0RF etonogestrel-ethinyl estradiol [NuvaRing] 0.12-0.015 mg/24 hr ring 1 vag ring vaginal ONCE Qty: 3 0RF naproxen 500 mg tablet 500 mg PO DAILY PRN (Reason: pain) 90 Days Qty: 90 1RF Ajovy Autoinjector 225 mg/1.5 mL auto-injector 225 mg subcut .COMPLEX 90 Days Qty: 4.5 1RF Rx Instructions: 225 mg subcutaneously [id number]; due 12/12/24 emtricitabine-tenofovir (TDF) [Truvada] 200-300 mg tablet 1 tab PO DAILY infliximab [Remicade] 100 mg recon soln 1,034 mg IV .Q6W Rx Instructions: INFUSE EVERY 6 WEEKS Approved from 10/26/22-10/27/23 Auth Number [id number] Premedication: Loratadine 10mg PO Prior to infusion Tylenol 500mg PO prior to infusion. LABS: CMP, CBC with each infusion. Call office with any questions or concerns [phone] oxybutynin chloride 5 mg tablet 5 mg PO TID PRN (Reason: bladder spasms) Qty: 60 0RF Ubrelvy 100 mg tablet 100 mg PO .COMPLEX PRN (Reason: Migraine Headache) Rx Instructions: 100 mg orally ONCE AT MIGRAINE ONSET. MAY REPEAT IN 2 HRS PRN; cholecalciferol (vitamin D3) 1,250 mcg (50,000 unit) capsule 50,000 unit PO WK Rx Instructions: tuesday ondansetron HCl 4 mg tablet 4 mg PO Q6 PRN (Reason: Nausea And Vomiting) fludrocortisone 0.1 mg tablet 0.2 mg PO QAM Patient Comments: qam mupirocin 2 % ointment 1 applic topical BID PRN (Reason: Mouth Irritation) Rx Instructions: apply to lesions on area around mouth if not improving No Action (DME) Shower Chair Misc See Rx Instructions .Route Qty: 1 0RF Rx Instructions: As directed R55 Discharge Orders: Discharge Order (Routine); Ordered 12/06/24 Ordered By: Magalys Senior Admission Data Admit Date/Time: 12/06/24 01:19 Attending Provider: Malathi Canela Admit Provider: Virginia Arredondo Primary Care Provider: Tracy Jeffries Other Providers: Virginia Arredondo; Fredis Godinez Other Interventions: Discharge Summary Assessment (RN) Last Done: 12/06/24 10:55 Hospital Stay Data Consultations 12/06/24 01:21 ED Decision to Admit Stat 12/06/24 02:17 Consult Urology Routine Diagnostic Imagining Performed 12/05/24 21:37 CT abd pelvis IV con only Stat Pending Results Patient Have Any Pending Studies at Discharge: No Discharge Instructions Given to Patient (Per Discharging Provider) Ms. Hyde, You were recently hospitalized for flank pain. You were found to have pain secondary to your ureteral stent and also a UTI. You were given antibiotics, pain medication, and IV fluid with improvement. Urology evaluated you while you were in the hospital and recommended supportive care with pain medication & to follow up for your upcoming procedure with them. Please see recommendations below regarding your discharge. Please take Cefdinir twice daily for the next 6 days. Please take with food to avoid GI upset. Please take Tylenol 1000mg every 8 hours to help with your flank pain. You may use Ibuprofen for breakthrough pain. For severe pain, please use oxycodone 5mg every 4 hours as needed (pain 8,9,10 on pain scale). You may also use Oxybutynin 5mg three times daily as needed for urinary discomfort as well. Please use Zofran as needed for nausea or vomiting. Please resume the remainder of your medications unless stated otherwise below. Please follow up w/ urology as scheduled. Please follow up with your PCP within 1-2 weeks of discharge. Best of luck! Magalys Senior PA-C Total Time Total Time Spent Total Time Spent (In Minutes): 45 Total Time Includes: Examination of the Patient, Discharge Planning and Medication Reconciliation Coding Level of Care Code 01858 INP/OBS DISCH >30 MIN Diagnoses Renal colic on right side N23
[2024-12-06] MEDS: FAMOTIDINE 40 MG TABLET PO SCH (10:14)
[2024-12-06] MEDS: TAMSULOSIN HCL 0.4 MG CAP PO SCH (10:14)
[2024-12-06] MEDS: FLUDROCORTISONE ACETATE 0.1 MG TAB PO SCH (10:16)
[2024-12-06] MEDS: cefTRIAXone SODIUM 2,000 MG/50 ML BAG IV SCH (10:20)
[2024-12-06] MEDS ORDERED: SERTRALINE HCL 50 MG TABLET PO SCH (21:00)
== END 2024-12-06 12:38 | disposition home or self-care (01) ==
LOC: ED 21:05 → 2N 21:05 → SUATTDRO 12-06 01:19 → 2N 12-06 02:00